=== PATIENT | female | born 1930 | race Caucasian/White ===

== ENCOUNTER 2017-04-17 11:29 | Inpatient (IN) | payer MEDICARE, OTHER ==
--- NOTE | 2017-04-17 12:24 | CT ---
CT HEAD WITHOUT CONTRAST: Date: 04/17/17 Multiple tomograms obtained through head without IV enhancement. HISTORY: Mental status change. Seizure at detention. COMPARISON: Head CT of 09/14/14. FINDINGS: Moderate cortical volume loss. Mild to moderate chronic ischemic white matter change. No evidence of acute mass, hemorrhage, or infarct. Sinuses and mastoids are well aerated. IMPRESSION: There are chronic changes which appear stable from the prior CT. No evidence of acute process. POS: [facility]
--- NOTE | 2017-04-17 12:28 | RAD ---
PORTABLE CHEST: Date: 04/17/17 HISTORY: Mental status change. COMPARISON: 11/16/13. FINDINGS: Cardiomegaly. Mild vascular and interstitial engorgement suggesting mild congestion and edema. [place] ralph right hemidiaphragm. Relatively poor inspiration. Severe degenerative changes at both shoulders. IMPRESSION: Cardiomegaly with evidence of mild congestion. POS: [facility]
[2017-04-17 12:53] LABS: #Basophils 0.1 thou/uL (0.0-0.2); #Eosinphils 0.1 thou/uL (0.0-0.7); #Lymphocytes 1.1 thou/uL (1.20-3.40); #Monocytes 0.5 thou/uL (0.11-0.59); #Neutrophils 14.2 thou/uL (1.40-6.50); %Basophils 0.3 % (0.0-1.0); %Eosinophils 0.5 % (0.0-10.0); %Monocytes 3.2 % (0.0-10.0); Hematocrit 32.4 % (36.0-47.0); Mean Platelet Volume 8.8 fL (7.4-10.4); Red Blood Cell (RBC) Count 3.16 mill/uL (4.20-5.40)
[2017-04-17 12:58] LABS: Bilirubin Negative (Negative); Blood, Urine Negative (Negative); Glucose, Urine (Dipstick) Negative (Negative); Ketone, Urine Negative (Negative); Nitrite Negative (Negative); Protein, Urine (Dipstick) 100 mg/dL (Neg-Trace); Urobilinogen 0.2 mg/dL (0.2-1.0)
[2017-04-17 13:00] LABS: Bacteria/HPF None Seen HPF (None Seen); Hyaline Casts/LPF 0-3 HYALINE CAST LPF (0-3 Hyaline); RBC/HPF 0-3 HPF (0-3); Squamous Epithelial 0-3 HPF (0-3); WBC/HPF 0-3 HPF (0-3)
[2017-04-17 13:10] LABS: Lactic Acid - Sepsis 1.6 mmol/L (0.5-2.2)
[2017-04-17 13:13] LABS: ALT (SGPT) 14 U/L (8-55); AST (SGOT) 28 U/L (5-34); Alkaline Phosphatase 107 U/L (40-150); Anion Gap 17 mmol/L (10-20); BUN (Urea Nitrogen) 38 mg/dL (9.8-20.1); Bilirubin, Total 0.4 mg/dL (0.2-1.2); Calc. Creatinine Clearance 0 mL/min (70-130); Calcium 8.8 mg/dL (7.8-10.44); Carbon Dioxide 19 mmol/L (23-31); Chloride 107 mmol/L (98-107); Estimated GFR-MDRD 30; Globulin 2.8 g/dL (2.4-3.5); Protein, Total 6.7 g/dL (6.0-8.3)
--- NOTE | 2017-04-17 14:31 | HP ---
PRIMARY CARE PHYSICIAN: Leandra Bella M.D. REASON FOR ADMISSION: Acute encephalopathy. HISTORY OF PRESENT ILLNESS: An 86-year-old female who has multiple medical problems who lives at [facility]. The patient was suddenly became altered. As per report, the patient was having seizure-like activity at the jail and the patient became nonverbal and the patie nt was in postictal phase. A 911 was called and paramedics brought her to the emergency room. As p er jail report, the patient is normally talkative and coherent, but today after seizure-like activity, the patient became nonverbal. The patient does have history of chronic pain disorder and she has pain pump in her right lower quad rant, but family member reports that they never refilled pain pump lately. The patient also had rec ently surgery at [facility] on the right upper extremity by Dr. Meza. There was no report of fever, chills at the jail. She did not have any UTI symptoms. The patient is completely altered and nonverbal and we are not able to get any history from her as w sd, history only limited from information which was given from jail. The patient's son who is a surgeon is also present at bedside. He also does not have any more clue because he was not pr esent when this happened. He was notified from jail and after that he came from [place]. When she presented to emergency room, she was hypertensive. She was completely disoriented and ence phalopathic. In the emergency room, CT brain was done which did not show any acute intracranial pro cess, but there were chronic ischemic white matter changes. This patient never had any seizure befo re. There was no history of trauma. The patient's son reports that she had one time admission in [facility] in 2014. At that time, the patient was given TPA for stroke-like symptoms. REVIEW OF SYSTEMS: All review of systems tried to review with the patient, but unable to review at this point because the patient is completely altered. Please see my HPI for pertinent positive and negative. All other review of systems negative. PAST MEDICAL HISTORY: Gastroesophageal reflux disease, rheumatoid arthritis, peripheral vascular di sease, history of deep vein thrombosis, dyslipidemia, hypertension, osteoarthritis, chronic kidney d isease stage 3, anemia of renal disease, history of MRSA infection in the right knee, Charcot foot o n the right side, idiopathic progressive polyneuropathy, chronic pain disorder, and history of left below-knee amputation. PAST SURGICAL HISTORY: Surgery for right knee for infection, pain pump in the right lower quadrant, left below-knee amputation, left knee surgery and spinal fusion, cholecystectomy, hysterectomy, jignesh ateral shoulder surgery, right and left ankle surgery, multiple hand surgery, IVC filter placement f or DVT, bilateral cataract surgery. PSYCHIATRIC HISTORY: Anxiety and depression. ALLERGIES: TEGRETOL and DETROL. FAMILY HISTORY: Diabetes, hypertension runs among several family members. SOCIAL HISTORY: The patient lives at [facility]. No history of tobacco, alcohol or illicit drug abuse. CURRENT HOME MEDICATIONS: Amlodipine 5 mg p.o. daily, Lipitor 10 mg p.o. at bedtime, aspirin 81 mg p.o. daily, probiotics 1 capsule twice daily, Dulcolax 5 mg Wednesday, Wednesday, Wednesday and at bedtime , Cymbalta 60 mg p.o. daily, vitamin D3 2000 units p.o. daily, gabapentin 100 mg twice daily, MiraLa x 17 grams p.o. daily, Plaquenil 200 mg p.o. daily, prednisone 5 mg p.o. daily, Protonix 20 mg p.o. daily., sulfasalazine 1500 mg twice daily, multivitamin 1 tablet p.o. daily. EMERGENCY ROOM COURSE: The patient has received Keppra 500 mg and IV fluid. PHYSICAL EXAMINATION: VITAL SIGNS: On arrival, blood pressure was 205/81, pulse 74, respiratory rate 14, temperature 97.6 , saturation 93% on 2 liter oxygen, weight 51 kilograms. GENERAL: The patient is completely disoriented. HEENT: Head: Normocephalic and atraumatic. Eyes: Pupils small and reactive to light. Extraocula r muscle are intact. ENT: Moist mucous membranes. No oral lesions. No pharyngeal erythema, no ex udate. NECK: Supple, no JVD, no thyromegaly, no carotid bruit. LUNGS: Clear to auscultation without any rhonchi or rales. CARDIAC: S1, S2 regular. No murmur elicited, no gallop, no rub. ABDOMEN: Soft. The pain pump is present in the right lower quadrant. No peritoneal signs. No dis tention. Bowel sounds present. No organomegaly, no mass. GENITOURINARY: Unremarkable. LOWER EXTREMITIES: Left BKA, right lower extremity unremarkable. Right foot, Charcot foot. Upper extremity, passive movements of all joints are normal. NEUROLOGIC: Unable to assess at this point because the patient is completely disoriented, though th e patient is moving all four limbs. PSYCHIATRIC: Unable to assess at this point. SIGNIFICANT LABS: Chest x-ray based on my review, cardiomegaly, mild pulmonary vascular congestion. CT brain, chronic ischemic white matter changes, no acute process. boat buffer plastic showing sinu s rhythm with occasional PVCs. CBC: WBC 16.0, hemoglobin 9.9, MCV 102.0, and platelet 269. BMP: Sodium 139, potassium 3.6, chloride 107, carbon dioxide 19, BUN 38, creatinine 1.63, glucose 95, mateo cium 8.8, lactic acid 1.6. LFT: AST 28, ALT 14, alkaline phosphatase 107, albumin 3.9. CK-MB 7.0, troponin I 0.030. Urinalysis unremarkable. ASSESSMENT AND PLAN: 1. Acute encephalopathy, etiology uncertain at this point, we will check urine drug screen. We kanchan l send blood culture and urine culture. CT brain is negative for any acute intracranial process, chicas spected for seizure based on description from jail. We will consult Neurology for their opi nion. We will check B12, folate, ammonia level as a part of encephalopathy workup. We will continu e with IV fluid and start empiric antibiotic therapy with Rocephin. We will also check total CK pro lactin level. 2. Macrocytic anemia. We will check B12, folate and start folic acid, vitamin B12 therapy while in hospital. 3. Leukocytosis, likely related with acute stress response, but underlying infection needs to be ex cluded. We will send blood culture and urine culture. We are empirically starting Rocephin therapy . 4. Acute on chronic kidney failure. The patient has baseline chronic kidney disease stage 3, curre ntly creatinine is elevated. The patient will be given IV fluid at 70 mL per hour and we will repea t BMP tomorrow. 5. Gastroesophageal reflux disease. We will continue Protonix 40 mg p.o. daily. 6. Hypertension. We will continue amlodipine 5 mg p.o. daily and we will use parenteral hydralazin e and labetalol p.r.n. basis if the patient is not able to take p.o. medication. 7. Dyslipidemia. We will check lipid profile tomorrow and continue Lipitor 10 mg p.o. at bedtime. 8. Anxiety and depression. We will continue Cymbalta 60 mg p.o. daily. 9. Rheumatoid arthritis. We will continue Plaquenil 200 mg p.o. daily, prednisone 5 mg p.o. daily and sulfasalazine 1500 mg twice daily. 10. Chronic pain disorder and we will continue pain medication as tolerated. 11. Chronic peripheral neuropathy. Continue gabapentin 100 mg 3 times daily. 12. Deep venous thrombosis prophylaxis. Lovenox 30 mg subcutaneously daily. 13. Gastrointestinal prophylaxis, Pepcid 20 mg p.o. b.i.d. CODE STATUS: The patient is DNR. The patient's son is Dr. Blankenship who is surgeon in [place], present at bedside in the emergency room. He is a legal medical power of disability attorney and confirmed with him. Disposition plan based on clinical course. At this point, we are suspecting patient's stay in [facility] more than 2 midnights. Plan of care discussed with the patient's son at bedside in the emergenc y room.
[2017-04-17] MEDS ORDERED: hydrALAZINE 20 MG/ML VIAL ONE (14:47)
[2017-04-17] MEDS ORDERED: Lorazepam 2 MG/ML VIAL SLOW IVP PRN (15:47)
[2017-04-17] MEDS ORDERED: Ondansetron ODT 4 MG TAB PO PRN (15:47)
[2017-04-17] MEDS ORDERED: Artificial Tear Sol 15 ML BOT EA EYE PRN (15:47)
[2017-04-17] MEDS ORDERED: Eucerin (Mineral Oil/Petrolatum,White) 30 gm Jar TOP PRN (15:47)
[2017-04-17] MEDS ORDERED: Sodium Chloride 0.65% Nasal 44 ML BOT EA NARE PRN (15:47)
[2017-04-17] MEDS ORDERED: Labetalol HCl 100 MG/20 ML VIAL SLOW IVP PRN (15:47)
[2017-04-17] MEDS ORDERED: Diabetic Tussin 200 MG/10 ML UDCUP PO PRN (15:47)
[2017-04-17] MEDS ORDERED: hydrALAZINE 20 MG/ML VIAL SLOW IVP PRN (15:47)
[2017-04-17] MEDS ORDERED: Mag-Al 1200 mg/1200 mg/30 ML UDCUP PO PRN (15:47)
[2017-04-17] MEDS ORDERED: Senokot 8.6 MG TAB PO PRN (15:47)
[2017-04-17] MEDS ORDERED: Acetaminophen 325 MG TAB PO PRN (15:47)
[2017-04-17] MEDS ORDERED: Polyethylene Glycol 3350 17 GM Packet PO PRN (15:47)
[2017-04-17] MEDS ORDERED: Loperamide HCl 2 MG CAP PO PRN (15:47)
[2017-04-17] MEDS ORDERED: Milk Of Magnesia 30 ML UDCUP PO PRN (15:47)
[2017-04-17] MEDS ORDERED: Ondansetron HCl/PF 4 MG/2 ML Vial IVP PRN (15:47)
[2017-04-17] MEDS ORDERED: Bisacodyl 10 MG SUPP PR PRN (15:47)
[2017-04-17] MEDS ORDERED: Loratadine 10 MG TAB PO PRN (15:47)
[2017-04-17] MEDS ORDERED: Gabapentin 100 MG CAP PO SCH (16:15)
[2017-04-17] MEDS: sulfaSALAzine 500 MG TAB PO SCH ×2 (16:45→21:43)
[2017-04-17] MEDS: cefTRIAXone\\ROCEPHIN 1 GM, Admixture Fee 1 EACH in Sodium Chloride 0.9% 100 ML IVPB SCH (16:57)
[2017-04-17] MEDS: Sodium Chloride 0.9% 1,000 ML IV SCH (16:57)
--- NOTE | 2017-04-17 20:53 | CON ---
DATE OF CONSULTATION: 04/17/2017 REFERRING PHYSICIAN: Jennifer Hyde M.D. REASON FOR CONSULTATION: Confusion, questionable seizure. HISTORY OF PRESENT ILLNESS: Ms. Blankenship is a pleasant 86-year-old female who has been consulted for evaluation of confusion and possible seizure-like activity. History is very limited as the patient is unable to provide. There are no family member present at bedside. For this reason, most of the history is obtained from the patient's dictated H\T\P note. Apparently, the patient lives in a long-term and has multiple medical problems. She was seen by long-term staff to have changes in mentation and there was a questionable seizure-like activity noted. For this reason, paramedics were called in and she was brought to the [place] [facility]. The patient on my evaluation today is able to state her name and age. She is able to follow commands. She is somewhat groggy, but reports that she just feels tired and has pain in her leg. She denies headaches, chest pain, palpitation, nausea or vomiting. PAST MEDICAL HISTORY: Significant for hypertension, dyslipidemia, history of DVT, GERD, rheumatoid arthritis, and peripheral vascular disease, chronic kidney disease stage 3, anemia of chronic disease, history of MRSA in right knee , idiopathic progressive polyneuropathy, chronic pain disorder, and history of a left below-knee amputation. PAST SURGICAL HISTORY: Significant for left below-knee amputation, surgery for right knee infection, pain pump, spinal fusion, cholecystectomy, hysterectomy, bilateral shoulder surgery, right and left ankle surgery, multiple hand surgery , IVC filter placement for DVT and bilateral cataract surgery. SOCIAL HISTORY: She currently lives at [facility]. She does not smoke cigarettes, drink alcohol or use illicit drugs. FAMILY HISTORY: Noncontributory. CURRENT MEDICATIONS: Please review MAR. ALLERGIES: Include TEGRETOL and DETROL. REVIEW OF SYSTEMS: As mentioned above in HPI, otherwise negative. PHYSICAL EXAMINATION: VITAL SIGNS: Blood pressure of 143/66, pulse of 75, temperature of 97.6, respirations of 18, and O2 sats of 96% on 2 liters nasal cannula. GENERAL: Well-developed and well-nourished female in no apparent distress. RESPIRATORY: Clear to auscultation bilaterally. CARDIOVASCULAR: Regular rate and rhythm. NEUROLOGIC: Mental status: The patient is awake, alert, and oriented to person only. She is able to follow some simple commands. Speech and language appears fluent. Cranial nerves: Pupils are 3 mm and reactive. Visual sierra are full to threat. Extraocular muscles are intact. Face appears symmetric. Tongue and uvula are midline. Motor exam showed normal tone and bulk with 5/5 strength in both upper extremities and right lower extremities. She has a left BKA. Sensory appears intact in both upper and lower extremities. Gait and Romberg coordination could not be tested. LABORATORY DATA: Reviewed, which included CBC, CMP, troponin, CK-MB, TSH, B12, folate, which is significant for WBC of 16.0, hemoglobin 9.9, hematocrit of 32.4 , CK-MB of 7.0, BUN of 38, creatinine of 1.63, magnesium of 3.0, ammonia of 15. TSH of 45.6541. Urinalysis was negative, otherwise unremarkable. IMAGING STUDIES: CT head without contrast was reviewed which showed no acute intracranial abnormality. IMPRESSION: 1. Altered mental status, likely toxic metabolic encephalopathy. 2. Hypothyroidism. 3. Hypertension. ASSESSMENT AND PLAN: Ms. Blankenship is a pleasant 86-year-old female who presented with the changes in mentation. There was a questionable seizure-like activity, although the full description is not available. In my opinion, this is likely toxic metabolic encephalopathy. Given that she has no prior history of seizure disorder, I would not recommend starting on any antiepileptic medication at this time. I may obtain EEG for further evaluation. Unfortunately , we cannot obtain MRI brain due to the fact that she has a pain pump placed. I will await the results of the EEG. I would recommend addressing her elevated TSH level. Thank you for consultation. LORI
[2017-04-17] MEDS: Atorvastatin Calcium 10 MG TAB PO SCH (21:43)
[2017-04-17] MEDS: Famotidine 20 MG TAB PO SCH (21:43)
[2017-04-17] MEDS: Gabapentin 100 MG CAP PO SCH (21:43)
[2017-04-18 04:45] LABS: #Basophils 0.1 thou/uL (0.0-0.2); #Eosinphils 0.2 thou/uL (0.0-0.7); #Lymphocytes 2.2 thou/uL (1.20-3.40); #Monocytes 1.3 thou/uL (0.11-0.59); #Neutrophils 11.8 thou/uL (1.40-6.50); %Basophils 0.7 % (0.0-1.0); %Eosinophils 1.1 % (0.0-10.0); %Lymphocytes 14.3 % (21.0-51.0); %Monocytes 8.5 % (0.0-10.0); Hematocrit 31.6 % (36.0-47.0); Mean Platelet Volume 8.7 fL (7.4-10.4); Red Blood Cell (RBC) Count 3.06 mill/uL (4.20-5.40); White Blood Cell (WBC) Count 15.6 thou/uL (4.8-10.8)
[2017-04-18 04:58] LABS: ALT (SGPT) 12 U/L (8-55); AST (SGOT) 21 U/L (5-34); Alkaline Phosphatase 86 U/L (40-150); Anion Gap 15 mmol/L (10-20); BUN (Urea Nitrogen) 31 mg/dL (9.8-20.1); Bilirubin, Total 0.4 mg/dL (0.2-1.2); Calc. Creatinine Clearance 19 mL/min (70-130); Calcium 8.4 mg/dL (7.8-10.44); Carbon Dioxide 17 mmol/L (23-31); Chloride 113 mmol/L (98-107); Estimated GFR-MDRD 35; Globulin 2.4 g/dL (2.4-3.5); Protein, Total 5.7 g/dL (6.0-8.3)
--- NOTE | 2017-04-18 08:03 | CT ---
PRELIMINARY REPORT/[facility]/EMERGENCY AFTER HOURS PROCEDURE: EXAM: CT Head Without Intravenous Contrast CLINICAL HISTORY: 86 years old, female; Signs and symptoms; Altered mental status/memory loss; Confusion or disorienta tion; Patient HX: AMS TECHNIQUE: Axial computed tomography images of the head/brain without intravenous contrast. COMPARISON: No relevant prior studies available. FINDINGS: Brain: Mild volume loss No hemorrhage. Mild white matter disease. No edema. Ventricles: Unremarkable. No ventriculomegaly. Bones/joints: Degenerative changes at the temporomandibular joints No acute fracture. Soft tissues: Unremarkable. Sinuses: Unremarkable as visualized. No acute sinusitis. Mastoid air cells: Unremarkable as visualized. No mastoid effusion. IMPRESSION: No intracranial hemorrhage.Please see discussion above. Thank you for allowing us to participate in the care of your patient. Dictated and Authenticated by: Nish Douglas MD 04/18/2017 1:24 AM Central Time ([place] \T\ [place]) FINAL REPORT NONCONTRAST HEAD CT: Date: 04/18/17 COMPARISON: 04/17/17. HISTORY: Acute mental status change. TECHNIQUE: Noncontrast head CT is performed from skull baes to skull vertex. FINDINGS: This report is in agreement with the preliminary report by Rajiv. No acute intracranial process. No s ignificant interval change. POS: [facility]
[2017-04-18] MEDS: Enoxaparin Sodium 30 MG/0.3 ML SYRINGE SC SCH (09:29)
[2017-04-18] MEDS: Famotidine 20 MG TAB PO SCH ×3 (09:30→22:34)
[2017-04-18] MEDS: Gabapentin 100 MG CAP PO SCH ×3 (09:30→22:35)
[2017-04-18] MEDS: Amlodipine 5 MG TAB PO SCH ×2 (09:33→14:07)
[2017-04-18] MEDS: predniSONE 5 MG TAB PO SCH (09:34)
[2017-04-18] MEDS: Cyanocobalamin (Vitamin B-12) 1,000 MCG TAB PO SCH (09:34)
[2017-04-18] MEDS: DULoxetine 60 MG CAP PO SCH (09:35)
[2017-04-18] MEDS: Multivitamin W/ Minerals 1 TAB PO SCH (09:35)
[2017-04-18] MEDS: Folic Acid 1 MG TAB PO SCH (09:35)
[2017-04-18] MEDS: Hydroxychloroquine Sulfate 200 MG TAB PO SCH (09:35)
[2017-04-18] MEDS: sulfaSALAzine 500 MG TAB PO SCH ×4 (09:35→22:35)
--- NOTE | 2017-04-18 11:40 | PDOC.PN ---
- Subjective Encounter Start Date: 04/18/17 Encounter Start Time: 10:45 -: old records requested/rev Patient seen and examined. No new complaints. No overnight events, no seizure - Objective Resuscitation Status: Resuscitation Status DNR:Do Not Resuscitate MAR Reviewed: Yes Vital Signs & Weight: Vital Signs (12 hours) Temp Pulse Resp BP Pulse Ox 04/18/17 11:02 97.8 F 77 18 98 04/18/17 09:33 78 04/18/17 08:00 98.3 F 78 16 92 L 04/18/17 07:25 98.3 F 78 16 152/70 H 92 L 04/18/17 04:00 97.9 F 83 20 149/69 H 97 04/18/17 01:31 128/60 04/18/17 00:30 128/56 L 04/18/17 00:15 136/62 04/17/17 23:53 78 04/17/17 23:50 200/86 H 04/17/17 23:41 98.5 F 78 18 191/81 H 96 Weight Weight 96 lb 4.8 oz I&O: 04/17/17 04/18/17 04/19/17 06:59 06:59 06:59 Intake Total 614 Balance 614 Result Diagrams: 04/18/17 04:33 04/18/17 04:33 Additional Labs: Accuchecks 04/18/17 00:48 POC Glucose 93 Radiology Reviewed by me: Yes (CT brain noted) EKG Reviewed by me: Yes Phys Exam - Physical Examination Constitutional: NAD HEENT: PERRLA, moist MMs, sclera anicteric Neck: no JVD, supple Respiratory: no wheezing, no rales, no rhonchi Cardiovascular: RRR, no significant murmur, no rub Gastrointestinal: soft, non-tender, no distention, positive bowel sounds left BKA, upper extrimity with dressing Lymphatic: no nodes Psychiatric: normal affect Skin: no rash, normal turgor Dx/Plan (1) Acute metabolic encephalopathy Code(s): G93.41 - METABOLIC ENCEPHALOPATHY Status: Acute (2) Hypothyroidism Code(s): E03.9 - HYPOTHYROIDISM, UNSPECIFIED Status: Acute (3) Leucocytosis Code(s): D72.829 - ELEVATED WHITE BLOOD CELL COUNT, UNSPECIFIED Status: Acute (4) UTI (urinary tract infection) Status: Acute (5) Anxiety and depression Code(s): F41.8 - OTHER SPECIFIED ANXIETY DISORDERS Status: Chronic (6) CKD (chronic kidney disease), stage III Code(s): N18.3 - CHRONIC KIDNEY DISEASE, STAGE 3 (MODERATE) Status: Chronic (7) Dyslipidemia Code(s): E78.5 - HYPERLIPIDEMIA, UNSPECIFIED Status: Chronic (8) History of left below knee amputation Code(s): Z89.512 - ACQUIRED ABSENCE OF LEFT LEG BELOW KNEE Status: Chronic (9) Hypertension Code(s): I10 - ESSENTIAL (PRIMARY) HYPERTENSION Status: Chronic (10) Macrocytic anemia Code(s): D53.9 - NUTRITIONAL ANEMIA, UNSPECIFIED Status: Chronic (11) Protein-calorie malnutrition, moderate Code(s): E44.0 - MODERATE PROTEIN-CALORIE MALNUTRITION Status: Chronic (12) Rheumatoid arthritis Code(s): M06.9 - RHEUMATOID ARTHRITIS, UNSPECIFIED Status: Chronic (13) Seizure Code(s): R56.9 - UNSPECIFIED CONVULSIONS Status: Suspected - Plan cont current plan of care, continue antibiotics * continue rocephin * follow up on urine culture * no further seizure * today more alert * neurology recommendation noted * medication reviewed as below * symptomatic treatment. Review of Systems - Review of Systems Other: unable to review due to dementia and pt is confused - Medications/Allergies Allergies/Adverse Reactions: Allergies Allergy/AdvReac Type Severity Reaction Status Date / Time carbamazepine [From Tegretol] Allergy Rash Verified 11/16/13 14:53 tolterodine tartrate Allergy Verified 11/16/13 14:53 [From Detrol] Medications: Current Medications Acetaminophen (Tylenol) 650 mg PO Q4H PRN PRN Reason: Headache/Fever or Pain Al Hydroxide/Mg Hydroxide (Maalox) 30 ml PO Q6H PRN PRN Reason: Heartburn or Indigestion Amlodipine Besylate (Norvasc) 5 mg PO DAILY [facility] Last Admin: 04/18/17 09:33 Dose: 5 mg Artificial Tears (Tears Renewed 15ml Bottle) 0 drop EA EYE PRN PRN PRN Reason: Dry Eyes Aspirin (Aspirin Chewable) 81 mg PO DAILY [facility] Last Admin: 04/18/17 09:30 Dose: 81 mg Atorvastatin Calcium (Lipitor) 10 mg PO HS [facility] Last Admin: 04/17/17 21:43 Dose: Not Given Bisacodyl (Dulcolax) 10 mg GA Q24H PRN PRN Reason: Constipation Cholecalciferol (Vitamin D3) 2,000 units PO DAILY [facility] Last Admin: 04/18/17 09:34 Dose: Not Given Cyanocobalamin (Vitamin B-12) 1,000 mcg PO DAILY [facility] Last Admin: 04/18/17 09:34 Dose: Not Given Duloxetine HCl (Cymbalta) 60 mg PO DAILY [facility] Last Admin: 04/18/17 09:35 Dose: Not Given Enoxaparin Sodium (Lovenox) 30 mg SC 0900 [facility] Last Admin: 04/18/17 09:29 Dose: 30 mg Famotidine (Pepcid) 20 mg PO BID [facility] Last Admin: 04/18/17 09:30 Dose: 20 mg Folic Acid (Folvite) 1 mg PO DAILY [facility] Last Admin: 04/18/17 09:35 Dose: Not Given Gabapentin (Neurontin) 100 mg PO TID [facility] Last Admin: 04/18/17 09:30 Dose: 100 mg Guaifenesin (Robitussin Sf) 200 mg PO Q4H PRN PRN Reason: Cough Hydralazine HCl (Apresoline) 10 mg SLOW IVP Q4H PRN PRN Reason: Systolic BP > 180 Last Admin: 04/17/17 23:53 Dose: 10 mg Hydroxychloroquine Sulfate (Plaquenil) 200 mg PO DAILY [facility] Last Admin: 04/18/17 09:35 Dose: Not Given Sodium Chloride (Normal Saline 0.9%) 1,000 mls @ 70 mls/hr IV .[id number] [facility] Last Admin: 04/17/17 16:57 Dose: 1,000 mls Levetiracetam 500 mg/ Device 100 mls @ 200 mls/hr IVPB BID [facility] Last Admin: 04/18/17 09:27 Dose: 100 mls Ceftriaxone Sodium 1 gm/Miscellaneous Medication 1 each/ Sodium Chloride 100 mls @ 200 mls/hr IVPB Q24HR@1700 [facility] Last Admin: 04/17/17 16:57 Dose: 100 mls Iron/Minerals/Multivitamins (Theragran M) 1 tab PO DAILY [facility] Last Admin: 04/18/17 09:35 Dose: Not Given Labetalol HCl (Normodyne) 20 mg SLOW IVP Q4H PRN PRN Reason: Systolic BP > 180 Levothyroxine Sodium (Synthroid) 75 mcg PO 0600 YANELY Loperamide HCl (Imodium) 2 mg PO PRN PRN PRN Reason: Diarrhea/Loose Stools Loratadine (Claritin) 10 mg PO DAILYPRN PRN PRN Reason: Sinus Symptoms Lorazepam (Ativan) 1 mg SLOW IVP Q4H PRN PRN Reason: Anxiety/Agitation Magnesium Hydroxide (Milk Of Magnesium) 30 ml PO DAILYPRN PRN PRN Reason: Constipation Mineral Oil/White Petrolatum (Eucerin Cream) 0 gm TOP BIDPRN PRN PRN Reason: Dry Skin Ondansetron HCl (Zofran Odt) 4 mg PO Q6H PRN PRN Reason: Nausea/Vomiting Ondansetron HCl (Zofran) 4 mg IVP Q6H PRN PRN Reason: Nausea/Vomiting Pantoprazole Sodium (Protonix) 40 mg PO DAILY [facility] Last Admin: 04/18/17 09:35 Dose: Not Given Polyethylene Glycol (Miralax) 17 gm PO DAILYPRN PRN PRN Reason: Constipation Prednisone (Prednisone) 5 mg PO QAM-[facility] Last Admin: 04/18/17 09:34 Dose: Not Given Senna (Senokot) 2 tab PO HSPRN PRN PRN Reason: Constipation Sodium Chloride ([place] Nasal [place] 0.65%) 0 ml EA NARE QIDPRN PRN PRN Reason: Nasal Congestion Sulfasalazine (Azulfidine) 1,500 mg PO QID [facility] Last Admin: 04/18/17 09:35 Dose: Not Given
[2017-04-18] MEDS ORDERED: hydrOXYzine 10 MG TAB PO PRN (13:25)
[2017-04-18] MEDS ORDERED: niCARdipine 40MG In NaCl 40 MG/200 ML BAG IVPB SCH (14:00)
[2017-04-18] MEDS ORDERED: niCARdipine HCl 50 MG in Sodium Chloride 0.9% 250 ML 230 ML IVPB SCH (14:00)
[2017-04-18 14:04] LABS: #Basophils 0.1 thou/uL (0.0-0.2); #Eosinphils 0.2 thou/uL (0.0-0.7); #Lymphocytes 2.1 thou/uL (1.20-3.40); #Monocytes 1.2 thou/uL (0.11-0.59); #Neutrophils 10.2 thou/uL (1.40-6.50); %Basophils 0.9 % (0.0-1.0); %Eosinophils 1.5 % (0.0-10.0); %Lymphocytes 15.3 % (21.0-51.0); Hematocrit 30.4 % (36.0-47.0); Mean Platelet Volume 8.9 fL (7.4-10.4); Red Blood Cell (RBC) Count 2.91 mill/uL (4.20-5.40); White Blood Cell (WBC) Count 13.9 thou/uL (4.8-10.8)
--- NOTE | 2017-04-18 14:07 | PRG ---
DATE OF SERVICE: 04/18/2017 SUBJECTIVE: This patient was seen earlier this morning. Pramod Lloyd was called and the patient was seen again bedside. As per nursing, the patient was earlier alert, arousable and responsive, but Tyra Ascencio was called because suddenly the patient became unresponsive. The patient was seen and exam ined at bedside. Plan of care discussed with the patient's family member and the patient's son is p resent at bedside. Her blood pressure is 227/123. I am suspecting the patient has hypertensive enc ephalopathy. Her pupil is small, but reactive. The patient is not following any commands. I am or dering a routine blood test as well as CT brain again without contrast to rule out any hypertensive bleed. The patient's son is concerned about and that is why we decided to transfer to CCU for close monitoring. We will start a Cardene drip. I spoke with the Speech Therapy and they cleared here f or pureed type of diet. We will discontinue IV fluid and we will closely monitor tonight in CCU.
[2017-04-18 14:29] LABS: Anion Gap 17 mmol/L (10-20); BUN (Urea Nitrogen) 29 mg/dL (9.8-20.1); Calc. Creatinine Clearance 21 mL/min (70-130); Calcium 8.5 mg/dL (7.8-10.44); Carbon Dioxide 18 mmol/L (23-31); Chloride 114 mmol/L (98-107); Estimated GFR-MDRD 39
[2017-04-18 14:35] LABS: Troponin I 0.043 ng/mL (< 0.028)
[2017-04-18] MEDS: cefTRIAXone\\ROCEPHIN 1 GM, Admixture Fee 1 EACH in Sodium Chloride 0.9% 100 ML IVPB SCH (19:54)
[2017-04-18] MEDS: Sodium Chloride 0.9% 1,000 ML IV SCH (19:54)
[2017-04-18] MEDS ORDERED: cefTRIAXone\\ROCEPHIN 1 GM, Admixture Fee 1 EACH in Sodium Chloride 0.9% 100 ML IVPB SCH (21:00)
[2017-04-18] MEDS: Atorvastatin Calcium 10 MG TAB PO SCH (22:35)
[2017-04-18] MEDS: cloNIDine 0.1 MG TAB PO PRN (23:29)
[2017-04-19] MEDS: cloNIDine 0.1 MG TAB PO PRN ×2 (05:06→10:32)
[2017-04-19] MEDS: Levothyroxine Sodium 75 MCG TAB PO SCH (05:06)
[2017-04-19] MEDS: Folic Acid 1 MG TAB PO SCH (10:21)
[2017-04-19] MEDS: sulfaSALAzine 500 MG TAB PO SCH ×4 (10:22→20:43)
[2017-04-19] MEDS: Amlodipine 5 MG TAB PO SCH (10:22)
[2017-04-19] MEDS: Cyanocobalamin (Vitamin B-12) 1,000 MCG TAB PO SCH (10:22)
[2017-04-19] MEDS: Gabapentin 100 MG CAP PO SCH ×3 (10:22→20:43)
[2017-04-19] MEDS: Hydroxychloroquine Sulfate 200 MG TAB PO SCH (10:22)
[2017-04-19] MEDS: DULoxetine 60 MG CAP PO SCH (10:23)
[2017-04-19] MEDS: Multivitamin W/ Minerals 1 TAB PO SCH (10:23)
[2017-04-19] MEDS: Enoxaparin Sodium 30 MG/0.3 ML SYRINGE SC SCH (10:23)
[2017-04-19] MEDS: predniSONE 5 MG TAB PO SCH (10:23)
[2017-04-19] MEDS: Famotidine 20 MG TAB PO SCH ×2 (10:23→20:42)
[2017-04-19 13:24] LABS: Free T3 Less than 1.00 pg/mL (1.71-3.71)
--- NOTE | 2017-04-19 13:30 | PDOC.PN ---
- Subjective Encounter Start Date: 04/19/17 Encounter Start Time: 09:00 Subjective: Patient more oriented today. No complaints. Doesn't remember coming in -: though does remember that people thought she might have had a -: seizure. - Objective Resuscitation Status: Resuscitation Status DNR:Do Not Resuscitate MAR Reviewed: Yes Vital Signs & Weight: Vital Signs (12 hours) Temp Pulse Resp BP BP Pulse Ox 04/19/17 12:00 97.7 F 76 20 150/67 H 94 L 04/19/17 10:32 188/83 H 04/19/17 10:22 72 04/19/17 07:46 98.4 F 72 20 188/83 H 96 04/19/17 04:22 98 F 79 16 182/101 H 92 L Weight Weight 96 lb 4.8 oz Most Recent Monitor Data Heart Rate from ECG 67 NIBP 155/59 NIBP BP-Mean 90 Respiration from ECG 11 SpO2 99 I&O: 04/18/17 04/19/17 04/20/17 06:59 06:59 06:59 Intake Total 614 245 200 Output Total 1 Balance 614 244 200 Result Diagrams: 04/18/17 13:55 04/18/17 13:55 Additional Labs: Accuchecks 04/18/17 13:38 POC Glucose 76 Phys Exam - Physical Examination Constitutional: NAD HEENT: moist MMs Respiratory: no wheezing, no rales, no rhonchi Cardiovascular: RRR, no significant murmur Gastrointestinal: soft, positive bowel sounds Neurological: moves all 4 limbs Psychiatric: normal affect, A&O x 3 Dx/Plan (1) Acute metabolic encephalopathy Code(s): G93.41 - METABOLIC ENCEPHALOPATHY Status: Acute Plan: Improving, possibly related to uncontrolled blood pressure. EEG pending. (2) Hypothyroidism Code(s): E03.9 - HYPOTHYROIDISM, UNSPECIFIED Status: Acute Plan: check fT3 and T4 (3) UTI (urinary tract infection) Status: Acute Plan: Multi drug resistant E.coli, less than 25,000 CFU and normal appearing UA in this hospital so suspicious for colonization only, not infection. Will d/c antibiotics for now. Consult ID. (4) CKD (chronic kidney disease), stage III Code(s): N18.3 - CHRONIC KIDNEY DISEASE, STAGE 3 (MODERATE) Status: Chronic (5) Dyslipidemia Code(s): E78.5 - HYPERLIPIDEMIA, UNSPECIFIED Status: Chronic (6) History of left below knee amputation Code(s): Z89.512 - ACQUIRED ABSENCE OF LEFT LEG BELOW KNEE Status: Chronic (7) Hypertension Code(s): I10 - ESSENTIAL (PRIMARY) HYPERTENSION Status: Chronic Plan: Improved control. Now out of ICU. - Plan cont current plan of care, PT/OT, speech therapy Appreciate neurology input. * . - Discharge Day Encounter end time: 10:00
[2017-04-19] MEDS: Atorvastatin Calcium 10 MG TAB PO SCH (20:43)
[2017-04-20] MEDS: cloNIDine 0.1 MG TAB PO PRN ×2 (00:05→23:53)
[2017-04-20 05:00] LABS: #Basophils 0.1 thou/uL (0.0-0.2); #Eosinphils 0.3 thou/uL (0.0-0.7); #Lymphocytes 2.2 thou/uL (1.20-3.40); #Monocytes 0.8 thou/uL (0.11-0.59); #Neutrophils 5.6 thou/uL (1.40-6.50); %Basophils 1.2 % (0.0-1.0); %Eosinophils 3.2 % (0.0-10.0); %Lymphocytes 24.6 % (21.0-51.0); %Monocytes 8.9 % (0.0-10.0); Hematocrit 28.2 % (36.0-47.0); Mean Platelet Volume 8.7 fL (7.4-10.4); Red Blood Cell (RBC) Count 2.69 mill/uL (4.20-5.40)
[2017-04-20] MEDS: Levothyroxine Sodium 75 MCG TAB PO SCH (05:10)
[2017-04-20 05:17] LABS: Anion Gap 9 mmol/L (10-20); BUN (Urea Nitrogen) 21 mg/dL (9.8-20.1); Calc. Creatinine Clearance 24 mL/min (70-130); Calcium 8.4 mg/dL (7.8-10.44); Carbon Dioxide 23 mmol/L (23-31); Chloride 113 mmol/L (98-107); Estimated GFR-MDRD 43
[2017-04-20] MEDS: sulfaSALAzine 500 MG TAB PO SCH ×4 (08:51→20:01)
[2017-04-20] MEDS: predniSONE 5 MG TAB PO SCH (08:54)
[2017-04-20] MEDS: Multivitamin W/ Minerals 1 TAB PO SCH (08:54)
[2017-04-20] MEDS: Cyanocobalamin (Vitamin B-12) 1,000 MCG TAB PO SCH (08:54)
[2017-04-20] MEDS: Hydroxychloroquine Sulfate 200 MG TAB PO SCH (08:54)
[2017-04-20] MEDS: Amlodipine 5 MG TAB PO SCH (08:55)
[2017-04-20] MEDS: Folic Acid 1 MG TAB PO SCH (08:55)
[2017-04-20] MEDS: Famotidine 20 MG TAB PO SCH ×2 (08:55→20:01)
[2017-04-20] MEDS: Gabapentin 100 MG CAP PO SCH ×3 (08:55→20:02)
[2017-04-20] MEDS: Enoxaparin Sodium 30 MG/0.3 ML SYRINGE SC SCH (08:55)
[2017-04-20] MEDS: DULoxetine 60 MG CAP PO SCH (08:55)
[2017-04-20] MEDS ORDERED: levETIRAcetam 500 MG TAB PO SCH (12:30)
--- NOTE | 2017-04-20 14:13 | CON ---
DATE OF CONSULTATION: 04/20/2017 REASON FOR CONSULTATION: Change in mental status. HISTORY OF PRESENT ILLNESS: An 86-year-old who has a history of rheumatoid arthritis, previously on Remicade and bilateral TKRs, as well as a left below knee amputation whom I had seen in 2012 because of change in mental status with aspiration. She had negative blood cultures at that time. Previously, she had sustained an infection of the right TKR. She had completed treatment with IV antimicrobial therapy for methicillin resistant Staphylococcal infection and had revision without any complications and [facility]. In 07/2013, she had an admission with altered mental status due to narcotics. CT of brain then showed no abnormalities. Chest x-ray was normal. She had a fentanyl pump which was being monitored by pain specialist and no changes in medications have been implemented. In 10/2013 she was admitted with altered mental status with unintentional narcotic overdose. She was discharged on her medications including nortriptyline, Marlex, Lyrica, clonidine, she had an implantable pain pump which had a basal rate decreased from 1.5 mg per day to 1.3 mg per day performed by [employer] liaison. In 08/2014 she came in with partial vision loss of unclear etiology, possibly CVA and this time she was admitted with altered mental status with seizure-like activity. Neurology consultation was obtained and the impression was altered mental status, likely metabolic encephalopathy with questionable seizure-like activity. As part of workup, the patient had various labs, she did have white cell count elevation to 16,000 with platelets 269, now down to 9000. Creatinine was up to 1.29 and now is 1.19. Sodium was normal. Urinalysis was essentially normal. Microbiology with E. coli which was quite resistant to various antimicrobials. The patient had been given her medications that had been prescribed in the [facility] and currently she has recovered from her abnormal mental status. She has a little bit of difficulty with orientation. She knew she was in [place]. She did not remember the name of the place that she came from. She had some difficulty with recollection regarding various issues related to her current medical situation, did not remember the episode that led to admission to this hospital at this time. She denies any headaches, no visual symptoms, sore throat, odynophagia or dysphagia. She has some mild pain in the right hand at the site of recent surgery. No dyspnea or chest pain, no abdominal pain or diarrhea. No genitourinary symptoms. No other joint symptoms except for chronic joint issues related to her RA. PAST MEDICAL HISTORY: Longstanding rheumatoid arthritis, previously on Remicade , but not currently. History of recurrent episodes of delirium, possibly medication induced. Prior multiple surgeries for joint deformities and to improve the function including bilateral TKRs, left BKA, spinal fusion, cholecystectomy, hysterectomy episode of aspiration pneumonia, IVC filter placement, cataract surgery. ALLERGIES: TEGRETOL, DETROL. FAMILY HISTORY: Diabetes and hypertension. SOCIAL HISTORY: Lives in [facility], never a smoker. 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 MEDICATIONS: Norvasc, Lipitor, aspirin, probiotics, Dulcolax, Cymbalta, gabapentin, Marlex, Plaquenil, prednisone, Protonix, sulfasalazine. PHYSICAL EXAMINATION: VITAL SIGNS: Normal temperature throughout the hospital stay. Blood pressure 160/70, pulse 77, respirations 16, O2 sat 94-97%. GENERAL: Appears in no distress. SKIN: With a dry surgical site right hand dorsal aspect right across the metacarpophalangeal joints. She has an area of abrasion of the left forearm with some bruising probably from the fall. At the distal aspect this is an element of superficial skin necrosis. The entire lesion measures approximately 6-7 cm x 2 cm in width. No lymphadenopathy. HEENT: Ocular movements are conjugate. Sclerae white. Pupils are equal. Oral cavity with edentulous state. NECK: Supple, no jugular venous distention. LUNGS: With symmetric clear breath sounds. HEART: S1, S2, regular rate. No S3, S4, no murmurs. ABDOMEN: Soft. Not distended. No ascites. No bladder distention. EXTREMITIES: Some multiple joint deformities secondary to rheumatoid arthritis , particularly in the hands. She has the left BKA site which is intact. No evidence of knee inflammatory process. Pulses are diminished in dorsalis pedis. I could not get any plantar responses on the right side. No clonus. She is able to move extremities with a little limitation except for the subluxation of joints and a splint in the right hand. NEURO: She knows her name, recognizes the place, could not tell me the date, though. LABORATORY: Most recent labs with a white cell count 9.0, hemoglobin 8.8, MCV 105, platelets 222. Sodium 141, creatinine 1.19. Microbiology with what we discussed above. Chest x-ray with no evidence of infiltrate. Brain CT with no acute findings. ASSESSMENT: 1. Longstanding rheumatoid arthritis, previously on Remicade. 2. Recurrent episodes of altered mental status which led to prior admissions, previously ascribed to drug-induced delirium. Discussion: Recurrence of delirium, possibly drug-induced particularly opioid induced delirium is a consideration. According to the patient her pump is not functional anymore, but up until 2014 this was not the case. This may need to be revisited to determine if the pump has been recharged or not. She does take a number of other medications which can be associated with delirium. 4. The findings in urinary tract are most likely reflective of asymptomatic bacteriuria and I would not encourage treatment of this finding. Verify that there is proper post-void residual prior to discharge planning. 5. She has a laceration in the left forearm which appears to require only wound care without antimicrobial therapy. [facility]
--- NOTE | 2017-04-20 15:22 | PDOC.PN ---
- Subjective Encounter Start Date: 04/20/17 Encounter Start Time: 08:20 Pt seen for followup re: encephalopathy. Denies chest pain, shortness of breath , fevers or chills. No nausea or vomiting. - Objective Resuscitation Status: Resuscitation Status DNR:Do Not Resuscitate MAR Reviewed: Yes Vital Signs & Weight: Vital Signs (12 hours) Temp Pulse Pulse Pulse Resp BP Pulse Ox 04/20/17 11:35 98.4 F 77 16 169/71 H 94 L 04/20/17 08:55 66 04/20/17 08:50 97.8 F 66 16 97 04/20/17 08:27 72 74 04/20/17 03:32 97.8 F 66 16 132/70 97 Weight Admit Weight 104 lb Weight 99 lb 1.6 oz Most Recent Monitor Data Heart Rate from ECG 67 NIBP 155/59 NIBP BP-Mean 90 Respiration from ECG 11 SpO2 99 I&O: 04/19/17 04/20/17 04/21/17 06:59 06:59 06:59 Intake Total 245 720 Output Total 1 Balance 244 720 Result Diagrams: 04/20/17 04:32 04/20/17 04:32 EKG Reviewed by me: Yes (Tele: NSR) Phys Exam - Physical Examination Constitutional: NAD HEENT: moist MMs, sclera anicteric Neck: supple Respiratory: clear to auscultation bilateral Cardiovascular: RRR Gastrointestinal: soft RLQ pain pump s/p L BKA; R hand splint Neurological: moves all 4 limbs Psychiatric: normal affect, A&O x 3 Skin: no rash, cap refill <2 seconds Deviation from normal: laceration L forearm Dx/Plan (1) Acute metabolic encephalopathy Code(s): G93.41 - METABOLIC ENCEPHALOPATHY Status: Resolved (2) Hypothyroidism Code(s): E03.9 - HYPOTHYROIDISM, UNSPECIFIED Status: Chronic (3) CKD (chronic kidney disease), stage III Code(s): N18.3 - CHRONIC KIDNEY DISEASE, STAGE 3 (MODERATE) Status: Chronic (4) Dyslipidemia Code(s): E78.5 - HYPERLIPIDEMIA, UNSPECIFIED Status: Chronic (5) Hypertension Code(s): I10 - ESSENTIAL (PRIMARY) HYPERTENSION Status: Chronic (6) Macrocytic anemia Code(s): D53.9 - NUTRITIONAL ANEMIA, UNSPECIFIED Status: Chronic (7) Protein-calorie malnutrition, moderate Code(s): E44.0 - MODERATE PROTEIN-CALORIE MALNUTRITION Status: Chronic (8) Rheumatoid arthritis Code(s): M06.9 - RHEUMATOID ARTHRITIS, UNSPECIFIED Status: Chronic - Plan * . Pt is off of antibiotics for UTI (? colinization). Oriented x 3 today, but also appears to have episodes of confusion. Has home health at assisted living. Will order checking of [employer] pain pump. Review of Systems - Review of Systems Constitutional: negative: Fever, Chills, Sweats, Weakness, Malaise Respiratory: negative: Cough, Dry, Shortness of Breath, Hemoptysis, SOB with Excertion, Pleuritic Pain, Sputum, Wheezing Cardiovascular: negative: Chest Pain, Palpitations, Orthopnea, Paroxysmal Noc. Dyspnea, Edema, Light Headedness - Medications/Allergies Allergies/Adverse Reactions: Allergies Allergy/AdvReac Type Severity Reaction Status Date / Time carbamazepine [From Tegretol] Allergy Rash Verified 11/16/13 14:53 tolterodine tartrate Allergy Verified 11/16/13 14:53 [From Detrol] Medications: Current Medications Acetaminophen (Tylenol) 650 mg PO Q4H PRN PRN Reason: Headache/Fever or Pain Last Admin: 04/18/17 22:35 Dose: 650 mg Al Hydroxide/Mg Hydroxide (Maalox) 30 ml PO Q6H PRN PRN Reason: Heartburn or Indigestion Amlodipine Besylate (Norvasc) 5 mg PO DAILY [facility] Last Admin: 04/20/17 08:55 Dose: 5 mg Artificial Tears (Tears Renewed 15ml Bottle) 0 drop EA EYE PRN PRN PRN Reason: Dry Eyes Aspirin (Aspirin Chewable) 81 mg PO DAILY [facility] Last Admin: 04/20/17 08:54 Dose: 81 mg Atorvastatin Calcium (Lipitor) 10 mg PO HS [facility] Last Admin: 04/19/17 20:43 Dose: 10 mg Bisacodyl (Dulcolax) 10 mg NE Q24H PRN PRN Reason: Constipation Cholecalciferol (Vitamin D3) 2,000 units PO DAILY [facility] Last Admin: 04/20/17 08:51 Dose: 2,000 units Clonidine (Catapres) 0.1 mg PO Q4H PRN PRN Reason: SBP Greater Than 170 Last Admin: 04/20/17 00:05 Dose: 0.1 mg Cyanocobalamin (Vitamin B-12) 1,000 mcg PO DAILY [facility] Last Admin: 04/20/17 08:54 Dose: 1,000 mcg Duloxetine HCl (Cymbalta) 60 mg PO DAILY [facility] Last Admin: 04/20/17 08:55 Dose: 60 mg Enoxaparin Sodium (Lovenox) 30 mg SC 0900 [facility] Last Admin: 04/20/17 08:55 Dose: 30 mg Famotidine (Pepcid) 20 mg PO BID [facility] Last Admin: 04/20/17 08:55 Dose: 20 mg Folic Acid (Folvite) 1 mg PO DAILY [facility] Last Admin: 04/20/17 08:55 Dose: 1 mg Gabapentin (Neurontin) 100 mg PO TID [facility] Last Admin: 04/20/17 08:55 Dose: 100 mg Guaifenesin (Robitussin Sf) 200 mg PO Q4H PRN PRN Reason: Cough Hydroxychloroquine Sulfate (Plaquenil) 200 mg PO DAILY [facility] Last Admin: 04/20/17 08:54 Dose: 200 mg Hydroxyzine HCl (Atarax) 10 mg PO Q6H PRN PRN Reason: Itching Nicardipine HCl 50 mg/ Sodium (Chloride) 250 mls @ 0 mls/hr IVPB INF [facility]; Titrate PRN Reason: Protocol Iron/Minerals/Multivitamins (Theragran M) 1 tab PO DAILY [facility] Last Admin: 04/20/17 08:54 Dose: 1 tab Labetalol HCl (Normodyne) 20 mg SLOW IVP Q4H PRN PRN Reason: Systolic BP > 180 Last Admin: 04/18/17 13:47 Dose: 20 mg Levetiracetam (Keppra) 500 mg PO BID [facility] Levothyroxine Sodium (Synthroid) 75 mcg PO 0600 [facility] Last Admin: 04/20/17 05:10 Dose: 75 mcg Loperamide HCl (Imodium) 2 mg PO PRN PRN PRN Reason: Diarrhea/Loose Stools Loratadine (Claritin) 10 mg PO DAILYPRN PRN PRN Reason: Sinus Symptoms Lorazepam (Ativan) 1 mg SLOW IVP Q4H PRN PRN Reason: Anxiety/Agitation Magnesium Hydroxide (Milk Of Magnesium) 30 ml PO DAILYPRN PRN PRN Reason: Constipation Mineral Oil/White Petrolatum (Eucerin Cream) 0 gm TOP BIDPRN PRN PRN Reason: Dry Skin Ondansetron HCl (Zofran Odt) 4 mg PO Q6H PRN PRN Reason: Nausea/Vomiting Ondansetron HCl (Zofran) 4 mg IVP Q6H PRN PRN Reason: Nausea/Vomiting Pantoprazole Sodium (Protonix) 40 mg PO DAILY [facility] Last Admin: 04/20/17 08:55 Dose: 40 mg Polyethylene Glycol (Miralax) 17 gm PO DAILYPRN PRN PRN Reason: Constipation Prednisone (Prednisone) 5 mg PO QAM[facility] Last Admin: 04/20/17 08:54 Dose: 5 mg Senna (Senokot) 2 tab PO HSPRN PRN PRN Reason: Constipation Sodium Chloride ([place] Nasal [place] 0.65%) 0 ml EA NARE QIDPRN PRN PRN Reason: Nasal Congestion Sulfasalazine (Azulfidine) 1,500 mg PO QID [facility] Last Admin: 04/20/17 12:51 Dose: 1,500 mg
[2017-04-20] MEDS: Atorvastatin Calcium 10 MG TAB PO SCH (20:01)
[2017-04-20] MEDS: levETIRAcetam 500 MG TAB PO SCH (20:02)
[2017-04-21] MEDS: Levothyroxine Sodium 75 MCG TAB PO SCH (05:44)
[2017-04-21] MEDS: Enoxaparin Sodium 30 MG/0.3 ML SYRINGE SC SCH (10:52)
[2017-04-21] MEDS: sulfaSALAzine 500 MG TAB PO SCH ×4 (10:52→21:12)
[2017-04-21] MEDS: DULoxetine 60 MG CAP PO SCH (10:53)
[2017-04-21] MEDS: Folic Acid 1 MG TAB PO SCH (10:54)
[2017-04-21] MEDS: levETIRAcetam 500 MG TAB PO SCH ×2 (10:54→21:12)
[2017-04-21] MEDS: Amlodipine 5 MG TAB PO SCH (10:55)
[2017-04-21] MEDS: Hydroxychloroquine Sulfate 200 MG TAB PO SCH (10:55)
[2017-04-21] MEDS: predniSONE 5 MG TAB PO SCH (10:55)
[2017-04-21] MEDS: Famotidine 20 MG TAB PO SCH ×2 (10:55→21:12)
[2017-04-21] MEDS: Cyanocobalamin (Vitamin B-12) 1,000 MCG TAB PO SCH (10:56)
[2017-04-21] MEDS: Gabapentin 100 MG CAP PO SCH ×3 (10:56→21:12)
[2017-04-21] MEDS: Multivitamin W/ Minerals 1 TAB PO SCH (10:56)
--- NOTE | 2017-04-21 11:49 | PQF ---
CLINICAL DOCUMENTATION IMPROVEMENT CLARIFICATION FORM: ICD-10 Updated PLEASE DO AN ADDENDUM TO THE PROGRESS NOTE WITH ANY DOCUMENTATION UPDATES OR ADDITIONS AND CARRY THROUGH TO DC SUMMARY. THANK YOU. DATE: 04/21/17 ATTN: Dr. Tristan Madrigal Please exercise your independent, professional judgment in responding to the clarification form. Clinical indicators are provided on the bottom of this form for your review Please check appropriate box(s): [ ] Encephalopathy: Etiology: [ ] Hypertensive [ ] Metabolic [ ] Toxic [ ] Unspecified [ ] Other (please specify) [ ] Other diagnosis [ ] Unable to determine For continuity of documentation, please document condition throughout progress notes and discharge summary. Thank You. CLINICAL INDICATORS - SIGNS / SYMPTOMS / LABS NEUROLOGY CONSULT 04/17: AMS, LIKELY TOXIC METABOLIC ENCEPHALOPATHY PN 04/18: CODE GREEN WAS CALLED BP 227/123. I AM SUSPECTING THE PT HAS HYPERTENSIVE ENCEPHALOPATHY. START CARDENE DRIP. PN 04/19 : ACUTE METABOLIC ENCEPHALOPATHY. IMPROVING, POSSIBLY RELATED TO UNCONTROLLED BLOOD PRESSURE. RISKS: H&P: HX OF CHRONIC PAIN DISORDER AND HAS PAIN PUMP IN HER RLQ. WHEN SHE PRESENTED TO ER, SHE WAS HYPERTENSIVE. COMPLETELY DISORIENTED & ENCEPHALOPATHIC. HX OF RHEUMATOID ARTHRITIS, PVD, HYPERTENSION, CKD 3. TREATMENTS: CPOE 04/17: EEG CPOE 04/17: LABETALOL HCL 20 MG SLOW IVP Q4 HR PRN PN 04/20: WILL ORDER CHECKING OF [employer] PAIN PUMP Thank you, Freda (This form is maintained as a part of the permanent medical record) 2015 [employer] All Rights Reserved Freda Mcpherson RN, BSN [email or web address] Office: [phone] [facility]
[2017-04-21 12:45] VITALS: BMI 19.4
--- NOTE | 2017-04-21 14:01 | PDOC.PN ---
- Subjective Encounter Start Date: 04/21/17 Encounter Start Time: 13:56 Patient seen at bedside. No overnight events, no new complaints. No seizures reported. - Objective Resuscitation Status: Resuscitation Status DNR:Do Not Resuscitate Vital Signs & Weight: Vital Signs (12 hours) Temp Pulse Pulse Pulse Resp BP BP 04/21/17 11:06 97.7 F 73 16 04/21/17 10:55 68 162/78 H 04/21/17 09:43 81 72 131/60 04/21/17 08:00 97.7 F 73 16 04/21/17 07:25 97.4 F L 68 14 04/21/17 04:05 98.1 F 72 16 BP BP Pulse Ox 04/21/17 11:06 149/67 H 92 L 04/21/17 10:55 04/21/17 09:43 127/62 04/21/17 08:00 92 L 04/21/17 07:25 162/78 H 95 04/21/17 04:05 152/80 H 94 L Weight Admit Weight 104 lb Weight 99 lb 6.4 oz Most Recent Monitor Data Heart Rate from ECG 67 NIBP 155/59 NIBP BP-Mean 90 Respiration from ECG 11 SpO2 99 I&O: 04/20/17 04/21/17 04/22/17 06:59 06:59 06:59 Intake Total 720 1270 Balance 720 1270 Result Diagrams: 04/20/17 04:32 04/20/17 04:32 Phys Exam - Physical Examination Constitutional: NAD HEENT: moist MMs Neck: no JVD Respiratory: no rales Cardiovascular: RRR Gastrointestinal: soft Musculoskeletal: pulses present L BKA, R Hand in cast Psychiatric: A&O x 3 Dx/Plan (1) Acute metabolic encephalopathy Code(s): G93.41 - METABOLIC ENCEPHALOPATHY Status: Suspected (2) Anxiety and depression Code(s): F41.8 - OTHER SPECIFIED ANXIETY DISORDERS Status: Chronic (3) Dyslipidemia Code(s): E78.5 - HYPERLIPIDEMIA, UNSPECIFIED Status: Chronic (4) History of left below knee amputation Code(s): Z89.512 - ACQUIRED ABSENCE OF LEFT LEG BELOW KNEE Status: Chronic (5) Hypertension Code(s): I10 - ESSENTIAL (PRIMARY) HYPERTENSION Status: Chronic (6) Seizure Code(s): R56.9 - UNSPECIFIED CONVULSIONS Status: Suspected - Plan cont current plan of care, PT/OT, outreach and education social worker, out of bed/ambulate * Continue with current management. * On Keppra. Await official EEG results * Levothyroxine * Unclear etiology to AMS, which is resolved. Unable to get MRI due to pain pump ( no medication in pump as per treasury representative) * Awaiting Hand sx evaluation for sx recently performed * D/C in AM most likely
[2017-04-21] MEDS: Atorvastatin Calcium 10 MG TAB PO SCH (21:12)
[2017-04-22] MEDS: cloNIDine 0.1 MG TAB PO PRN (04:30)
[2017-04-22] MEDS: Levothyroxine Sodium 75 MCG TAB PO SCH (04:30)
[2017-04-22] MEDS: predniSONE 5 MG TAB PO SCH (08:49)
[2017-04-22] MEDS: Amlodipine 5 MG TAB PO SCH (08:49)
[2017-04-22] MEDS: Cyanocobalamin (Vitamin B-12) 1,000 MCG TAB PO SCH (08:50)
[2017-04-22] MEDS: DULoxetine 60 MG CAP PO SCH (08:50)
[2017-04-22] MEDS: Enoxaparin Sodium 30 MG/0.3 ML SYRINGE SC SCH (08:51)
[2017-04-22] MEDS: Gabapentin 100 MG CAP PO SCH ×2 (08:51→14:01)
[2017-04-22] MEDS: Hydroxychloroquine Sulfate 200 MG TAB PO SCH (08:51)
[2017-04-22] MEDS: Folic Acid 1 MG TAB PO SCH (08:51)
[2017-04-22] MEDS: Famotidine 20 MG TAB PO SCH (08:51)
[2017-04-22] MEDS: levETIRAcetam 500 MG TAB PO SCH (08:52)
[2017-04-22] MEDS: sulfaSALAzine 500 MG TAB PO SCH ×2 (08:52→14:01)
[2017-04-22] MEDS: Multivitamin W/ Minerals 1 TAB PO SCH (08:52)
[2017-04-22 11:01] VITALS: TEMP 97.4
[2017-04-22 11:40] VITALS: BP 121/60
--- NOTE | 2017-04-22 12:25 | PDOC.PN ---
- Subjective Encounter Start Date: 04/22/17 Encounter Start Time: 12:23 Patient seen at bedside. No overnight events, no new complaints, wants to go home. - Objective Resuscitation Status: Resuscitation Status DNR:Do Not Resuscitate MAR Reviewed: Yes Vital Signs & Weight: Vital Signs (12 hours) Temp Pulse Pulse Pulse Resp BP BP 04/22/17 11:00 97.4 F L 77 20 04/22/17 08:49 75 04/22/17 08:15 84 79 121/60 120/56 L 04/22/17 07:46 98.3 F 75 16 04/22/17 07:25 97.5 F L 70 12 04/22/17 05:05 04/22/17 03:56 98.3 F 75 16 BP Pulse Ox 04/22/17 11:00 136/62 97 04/22/17 08:49 04/22/17 08:15 04/22/17 07:46 04/22/17 07:25 184/76 H 91 L 04/22/17 05:05 141/79 H 04/22/17 03:56 176/78 H 97 Weight Admit Weight 104 lb Weight 93 lb 12.8 oz Most Recent Monitor Data Heart Rate from ECG 67 NIBP 155/59 NIBP BP-Mean 90 Respiration from ECG 11 SpO2 99 I&O: 04/21/17 04/22/17 04/23/17 06:59 06:59 06:59 Intake Total 1270 800 480 Balance 1270 800 480 Result Diagrams: 04/20/17 04:32 04/20/17 04:32 Phys Exam - Physical Examination Constitutional: NAD HEENT: moist MMs Neck: no JVD Respiratory: no rales Cardiovascular: RRR Gastrointestinal: non-tender Musculoskeletal: no edema BKA Neurological: non-focal Psychiatric: A&O x 3 Dx/Plan (1) Acute metabolic encephalopathy Code(s): G93.41 - METABOLIC ENCEPHALOPATHY Status: Resolved (2) Anxiety and depression Code(s): F41.8 - OTHER SPECIFIED ANXIETY DISORDERS Status: Chronic (3) Dyslipidemia Code(s): E78.5 - HYPERLIPIDEMIA, UNSPECIFIED Status: Chronic (4) History of left below knee amputation Code(s): Z89.512 - ACQUIRED ABSENCE OF LEFT LEG BELOW KNEE Status: Chronic (5) Hypertension Code(s): I10 - ESSENTIAL (PRIMARY) HYPERTENSION Status: Chronic (6) Seizure Code(s): R56.9 - UNSPECIFIED CONVULSIONS Status: Suspected - Plan cont current plan of care, PT/OT, manager social * Will D/W Neurology about EEG results and if Keppra is needed. * Appreciate plastics assistance- cast rewrapped. F/U in one week * D/C back to assisted living.
--- NOTE | 2017-04-22 15:42 | DIS ---
DATE OF ADMISSION: 04/17/2017 DATE OF DISCHARGE: 04/22/2017 DISCHARGE DISPOSITION: Assisted living with home health. DISCHARGE DIAGNOSES: 1. Altered mental status, etiology unclear; however, suspected toxic metabolic encephalopathy. 2. Hypothyroidism, started on levothyroxine therapy. 3. Gastroesophageal reflux disease. 4. Rheumatoid arthritis. 5. Hypertension. 6. History of left [id number] amputation. DISCHARGE MEDICATIONS: 1. Norvasc 5 mg p.o. daily. 2. Aspirin 81 mg p.o. daily. 3. Lipitor 10 mg p.o. at bedtime. 4. Dulcolax p.r.n. 5. Gabapentin 100 mg p.o. t.i.d. 6. Cinebar p.r.n. 7. Cymbalta 60 mg p.o. daily. 8. Synthroid 75 mcg p.o. daily, this is new. 9. Prednisone 5 mg p.o. daily. 10. Sulfasalazine 1500 mg p.o. b.i.d. 11. Mucinex p.r.n. INPATIENT CONSULTATIONS: 1. Dr. Cerrato, Neurology. 2. Dr. Yoder, Infectious Disease. INPATIENT PROCEDURES: None. INPATIENT RADIOGRAPHIC EXAMINATIONS: 1. CT of the brain which revealed no acute processes. 2. Chest x-ray which revealed cardiomegaly with evidence of mild congestion. 3. Repeat CT of the brain which revealed no acute intracranial hemorrhage. BRIEF HOSPITAL COURSE: Smita Blankenship is an 86-year-old female with multiple medical problems who presen ts to the Emergency Room after reportedly having altered mental status. As per the report, the angela ent was having seizure-like activity and subsequently brought to the emergency room. She was then s ubsequently admitted to the stroke floor for further evaluation. Initial imaging was negative. Due to the fact that it was initially thought she may have had a seizure, started on Keppra. EEG was p erformed with the assistance of Neurology who stated that the EEG was essentially negative on admiss ion and required being on Keppra. It was thought that her altered mental status may be secondary to metabolic encephalopathy. She did have a TSH which was 45. Subsequently, she was started on p.o. levothyroxine, has tolerated this well. On 04/18/2017, the patient had a Code Green due to increase d lethargy and unresponsiveness. She was transferred to the Critical Care Unit for a Cardene drip a s her systolic pressures over 220. She was transitioned off the Cardene drip and her blood pressure was improved. She was then subsequently transferred back to the stroke floor. Her mentation gradu ally did improve. Of note, the patient had a recent surgery with Dr. Meaz in her right hand. S he came by, rewrapped the cast and stated that she needs to follow up in 1 week. The patient's ment ation improved. It was suspected that it is most likely either a hypertensive encephalopathy versus a metabolic encephalopathy which may have caused altered mental status. There is no indication of a seizure and hence her antiepileptic medication was discontinued. She will return back to assisted living with home health with group home, physical therapy, occupational therapy, and wound car e. She is clinically appropriate for discharge home and we will discharge home later today in stabl e condition. DISCHARGE DIET: Heart healthy. ACTIVITY: As tolerated. RESTRICTIONS: None. CODE STATUS: DNR. ALLERGIES: CARBAMAZEPINE and TOLTERODINE. DISCHARGE PLAN: 1. Follow up with her PCP as an outpatient. 2. Dr. Meza in 1 week. 3. I have explained all this to the patient at bedside. She is agreeable to the plan of discharge. All questions have been answered. Total discharge time 34 minutes.
--- NOTE | 2017-04-24 15:17 | EKG ---
Test Reason : Blood Pressure : / mmHG Vent. Rate : 070 BPM Atrial Rate : 070 BPM P-R Int : 158 ms QRS Dur : 138 ms QT Int : 490 ms P-R-T Axes : 015 -54 184 degrees QTc Int : 529 ms Normal sinus rhythm Right bundle branch block Left anterior fascicular block Bifascicular block Septal infarct , age undetermined T wave abnormality, consider inferolateral ischemia No STEMI Abnormal ECG No changes since 2012 Confirmed by KRYSTAL YUAN M.D. ([id number]), electrical discharge machine operator LEXII KIMBROUGH ([id number]) on 04/24/2017 3:17:02 PM Referred By: Confirmed By:KRYSTAL YUAN M.D.
== END 2017-04-22 14:21 | disposition home health service (06) | DRG 77 ==
LOC: ERS 11:29 → 2SE 15:14 → CCU 04-18 14:34 → 2SE 04-18 19:12
PROVIDERS: ADMIT Internal Medicine; ATTEND Internal Medicine
DX: I67.4 Hypertensive encephalopathy (principal); G92 Toxic encephalopathy; N17.9 Acute kidney failure, unspecified; A52.16 Charcot's arthropathy (tabetic); E44.0 Moderate protein-calorie malnutrition; G62.9 Polyneuropathy, unspecified; N18.3 Chronic kidney disease, stage 3 (moderate); Z68.1 Body mass index [BMI] 19.9 or less, adult; M06.9 Rheumatoid arthritis, unspecified; E03.9 Hypothyroidism, unspecified; K21.9 Gastro-esophageal reflux disease without esophagitis; I12.9 Hypertensive chronic kidney disease with stage 1 through stage 4 chronic kidney disease, or unspecified chronic kidney disease; E78.5 Hyperlipidemia, unspecified; G89.29 Other chronic pain; F41.9 Anxiety disorder, unspecified; F32.9 Major depressive disorder, single episode, unspecified; D53.9 Nutritional anemia, unspecified; I73.9 Peripheral vascular disease, unspecified; M19.90 Unspecified osteoarthritis, unspecified site; Z89.512 Acquired absence of left leg below knee; Z86.718 Personal history of other venous thrombosis and embolism; Z86.14 Personal history of Methicillin resistant Staphylococcus aureus infection; Z98.890 Other specified postprocedural states; Z66 Do not resuscitate; Z88.8 Allergy status to other drugs, medicaments and biological substances
CPT/HCPCS: 36415; 36416; 51701; 70450; 71010; 80048; 80053; 81003; 81015; 82140; 82553; 82607; 82746; 83605; 83735; 83880; 84146; 84439; 84443; 84481; 84484; 85025; 87040; 87077; 87086; 87186; 93005; 94760; 95816; 95819; 96365; 96375; A4353; G8981-GP-CK; G8982-GP-CJ; G8987-GO-CK; G8988-GO-CJ; G8996-GN-CI; G8996-GN-CK; G8997-GN-CI; G8997-GN-CJ; J0360; J0696; J1650; J1953; J7050

== ENCOUNTER 2018-04-17 17:11 | Inpatient (IN) | payer MEDICARE ==
[2018-04-17 17:40] LABS: Hemoglobin 9.3 g/dL (12.0-16.0); Mean Corpuscular HGB CONC 30.1 g/dL (32.0-36.0); Mean Corpuscular Hemoglobin 31.5 pg (27.0-31.0); Mean Platelet Volume 9.8 fL (7.4-10.4); Platelet Count 169 thou/uL (130-400); RBC Distribution Width 14.2 % (11.5-14.5); Red Blood Cell (RBC) Count 2.96 mill/uL (4.20-5.40); White Blood Cell (WBC) Count 8.1 thou/uL (4.8-10.8)
[2018-04-17 17:50] LABS: ALT (SGPT) 13 U/L (8-55); AST (SGOT) 19 U/L (5-34); Albumin 4.7 g/dL (3.4-4.8); Alkaline Phosphatase 113 U/L (40-150); Anion Gap 17 mmol/L (10-20); BUN (Urea Nitrogen) 47 mg/dL (9.8-20.1); Bilirubin, Total 0.3 mg/dL (0.2-1.2); Calc. Creatinine Clearance 0 mL/min (70-130); Carbon Dioxide 14 mmol/L (23-31); Chloride 114 mmol/L (98-107); Estimated GFR-MDRD 29; Globulin 2.2 g/dL (2.4-3.5); Glucose 107 mg/dL (83-110); Potassium 6.4 mmol/L (3.5-5.1); Protein, Total 6.9 g/dL (6.0-8.3); Sodium 139 mmol/L (136-145)
[2018-04-17 17:57] LABS: Actual Bicarbonate (HCO3a) 15.8 mEq/L (22-28); Analyzer IN Cardio ER; Base Excess (BEa) -10.7 mEq/L (-2.0 to +3.0); CO2 Tension 37.5 mmHg (35.0-45.0); Carboxyhemoglobin (COHb) 1.4 gm% (0.0-3.0); Hemoglobin (Hb) 9.2 g/dL (12.0-16.0); O2 Tension (PaO2) 79.3 mmHg (> 60.0); Potassium - ABG Lab 6.12 mmol/L (3.70-5.30)
[2018-04-17 17:59] LABS: ALV-art Gradient 23.555 (0-20); Puncture Site RRA; pH, Arterial 7.24 (7.35-7.45)
[2018-04-17 18:02] LABS: #Basophils 0.1 thou/uL (0.0-0.2); #Eosinphils 0.4 thou/uL (0.0-0.7); #Lymphocytes 2.9 thou/uL (1.20-3.40); #Monocytes 1.1 thou/uL (0.11-0.59); #Neutrophils 3.6 thou/uL (1.40-6.50); %Basophils 1.8 % (0.0-1.0); %Eosinophils 4.9 % (0.0-10.0); %Lymphocytes 35.5 % (21.0-51.0); %Monocytes 13.3 % (0.0-10.0); %Neutrophils 44.6 % (42.0-75.0); MDiff Complete? YES; Macrocytosis SLIGHT = 6-15 cells (100X) (0-5/hpf); PLT Morphology Comment Appears Adequate; Poikilocytosis SLIGHT = 6-15 cells (100X) (0-5/hpf)
[2018-04-17 18:14] LABS: Bilirubin Negative (Negative); Blood, Urine Negative (Negative); Clarity CLEAR (Clear); Glucose, Urine (Dipstick) Negative (Negative); Leukocyte Trace (Negative); Nitrite Negative (Negative); Protein, Urine (Dipstick) 30 mg/dL (Neg-Trace); Specific Gravity, Urine 1.017 (1.002-1.036); Urobilinogen 0.2 mg/dL (0.2-1.0)
[2018-04-17 18:17] LABS: Bacteria/HPF None Seen HPF (None Seen); Hyaline Casts/LPF 0-3 HYALINE CAST LPF (0-3 Hyaline); Pathc Cast-AUWi Flag 0.14 (0-2.49); RBC/HPF None Seen HPF (0-3); Squamous Epithelial None Seen HPF (0-3); WBC/HPF None Seen HPF (0-3)
--- NOTE | 2018-04-17 18:32 | RAD ---
CHEST ONE VIEW: History: Dyspnea. Comparison: 04-17-17 FINDINGS: Cardiac silhouette is magnified and enlarged. Pulmonary vasculature unremarkable. Mediastinum is midl ine. Elevation of the right hemidiaphragm is stable. No lobar consolidation or evidence of pneumothor ax. Chronic deformities of each shoulder are stable. Metallic filter overlies the inferior vena cava. IMPRESSION: Cardiomegaly. Chronic type findings are stable. POS: CHARLES
[2018-04-17 19:28] LABS: Troponin I Less than 0.010 ng/mL (< 0.028)
--- NOTE | 2018-04-17 20:46 | CT ---
CT HEAD NONCONTRAST: History: Altered mental status. Comparison: 04-18-17 FINDINGS: There is no evidence of acute intracranial hemorrhage or infarct. Diffuse cortical atrophy and chroni c ischemic small vessel disease are again demonstrated. There is no mass effect or shift of midline s tructures. Calcification in the arteries at the brain base. Partial opacification of the left maxilla ry sinus and mastoid air cells. IMPRESSION: 1. No acute intracranial abnormalities are demonstrated. 2. Atherosclerosis. 3. Partial opacification of the left mastoid air cells and maxillary sinus. POS: CHARLES
[2018-04-17] MEDS ORDERED: Polyethylene Glycol 3350 17 GM Packet PO PRN (23:57)
[2018-04-17] MEDS ORDERED: Acetaminophen 500 MG TAB PO PRN (23:57)
[2018-04-18 00:18] LABS: Anion Gap 11 mmol/L (10-20); BUN (Urea Nitrogen) 40 mg/dL (9.8-20.1); Calc. Creatinine Clearance 19 mL/min (70-130); Calcium 8.5 mg/dL (7.8-10.44); Carbon Dioxide 17 mmol/L (23-31); Chloride 116 mmol/L (98-107); Estimated GFR-MDRD 37; Glucose 92 mg/dL (83-110); Potassium 5.5 mmol/L (3.5-5.1); Sodium 138 mmol/L (136-145)
[2018-04-18 00:48] LABS: Troponin I 0.013 ng/mL (< 0.028)
[2018-04-18] MEDS: hydrALAZINE 20 MG/ML VIAL SLOW IVP PRN (01:27)
[2018-04-18] MEDS: HYDROcodone/Acetaminophen 5/325 mg Tablet PO PRN ×3 (02:31→15:42)
[2018-04-18] MEDS: Levothyroxine Sodium 100 MCG TAB PO SCH (05:29)
[2018-04-18 06:11] LABS: #Basophils 0.1 thou/uL (0.0-0.2); #Eosinphils 0.3 thou/uL (0.0-0.7); #Lymphocytes 1.7 thou/uL (1.20-3.40); #Monocytes 0.7 thou/uL (0.11-0.59); #Neutrophils 4.7 thou/uL (1.40-6.50); %Basophils 1.4 % (0.0-1.0); %Eosinophils 3.9 % (0.0-10.0); %Lymphocytes 22.8 % (21.0-51.0); %Monocytes 9.7 % (0.0-10.0); %Neutrophils 62.2 % (42.0-75.0); Hemoglobin 8.9 g/dL (12.0-16.0); Mean Corpuscular HGB CONC 30.2 g/dL (32.0-36.0); Mean Corpuscular Hemoglobin 31.4 pg (27.0-31.0); Mean Platelet Volume 9.7 fL (7.4-10.4); Platelet Count 149 thou/uL (130-400); RBC Distribution Width 13.9 % (11.5-14.5); Red Blood Cell (RBC) Count 2.83 mill/uL (4.20-5.40); White Blood Cell (WBC) Count 7.6 thou/uL (4.8-10.8)
[2018-04-18 06:19] LABS: Anion Gap 13 mmol/L (10-20); BUN (Urea Nitrogen) 38 mg/dL (9.8-20.1); Calc. Creatinine Clearance 20 mL/min (70-130); Calcium 8.7 mg/dL (7.8-10.44); Carbon Dioxide 15 mmol/L (23-31); Chloride 118 mmol/L (98-107); Estimated GFR-MDRD 39; Glucose 86 mg/dL (83-110); Potassium 5.6 mmol/L (3.5-5.1); Sodium 140 mmol/L (136-145)
[2018-04-18 06:23] LABS: Troponin I Less than 0.010 ng/mL (< 0.028)
--- NOTE | 2018-04-18 06:51 | HP ---
CHIEF COMPLAINT: Choking. HISTORY OF PRESENT ILLNESS: This patient is an 87-year-old female who [facility]. EMS was called to the jail with report that the patient had been choking on a piece of pizza that she was eating and had gone unresponsive. Employee attempted a Heimlich maneuver and the patient be aden breathing again, but remained unresponsive. On EMS arrival, the patient had some hypoxia with ox ygen saturations around 80%, but was breathing at a normal rate. She apparently had some "crackly so unds" sounds on the left lung with the right side remained clear. They attempted to use a laryngosco pe to evaluate the patient and there was no evidence of retained food bolus and the patient was subse quently brought to the emergency department. In the emergency department, the patient was somewhat h ypertensive, but was satting well on room air and her only intervention in the ER was given fluids of 1 liter normal saline. Currently, the patient says she feels fine. She is complaining of some ches t pain. She does not really recall the events that happened at the nursing facility. She says liliam marsh told her that there had been some problem with her heart, but that is all that she really knows ab out the event. She does continue to have that chest discomfort. The patient also reports that she h ad recently had several seizures. She does have this history, I have no way to confirm that. PAST MEDICAL HISTORY: Gastroesophageal reflux, severe rheumatoid arthritis, peripheral vascular dise ase, history of DVT, dyslipidemia, hypertension, osteoarthritis, chronic kidney disease stage 3, anem ia of renal disease, history of methicillin-resistant Staphylococcus aureus infection of the right kn ee, Charcot foot on the right, idiopathic progressive polyneuropathy, chronic pain syndrome and histo ry of left below-knee amputation. Anxiety and depression. PAST SURGICAL HISTORY: Left BKA, surgery for debridement of right knee MRSA infection, pain pump in the right lower quadrant. A left [id number] amputation, spinal fusion, cholecystectomy, hysterec rosa, bilateral shoulder surgery, right and left ankle surgery, multiple hand surgeries, IVC filter p lacement for prior DVT and bilateral cataractectomy. FAMILY HISTORY: Diabetes, hypertension in numerous family members. SOCIAL HISTORY: The patient is a nonsmoker, nondrinker, nondrug user. She lives at the [facility]. She has an out of hospital DNR in the record, but she states that she would like to be a ful l code and that her would be her surrogate decision maker. Her continues to reside a [facility]. ALLERGIES: CARBAMAZEPINE, TOLTERODINE. MEDICATIONS: Sulfasalazine 1000 mg b.i.d., oxycodone 5 mg q.4 hours p.r.n., Keppra 250 p.o. b.i.d., guaifenesin p.r.n., MiraLax every day p.r.n., Procardia-XL 60 mg every day, Theragran 1 p.o. daily, Biofreeze p.r.n., Synthroid 100 mcg p.o. daily, acidophilus 1 cap daily, labetalol [address]., Pl aquenil 200 mg every day, gabapentin 100 mg t.i.d., ferrous sulfate 325 t.i.d., Cymbalta 60 every d ay, vitamin D 3 1000 units every day. Capsaicin topical patch p.r.n., atorvastatin 10 mg at bedtime, aspirin 81 mg every day, Tylenol p.r.n. PHYSICAL EXAMINATION: VITAL SIGNS: Temperature is 97.4, pulse 63, respiratory, BP was 199/83, O2 sats 92% on room air. GENERAL APPEARANCE: Age appropriate female. She is in no distress. She is pleasant and conversant. She seems unsure of the events of that led her here this evening, but generally appears fairly well oriented and coherent. HEENT: PERRL. No OP lesions. NECK: Supple and symmetric without lymphadenopathy. CARDIOVASCULAR: Regular rate and rhythm with no murmurs noted. LUNGS: Clear to auscultation bilaterally with good chest wall expansion and air exchange. No wheeze s or rales were noted presently. ABDOMEN: Soft, nondistended with bowel sounds present. EXTREMITIES: Warm and dry without edema. Left BKA present. LABORATORY DATA: White blood cell count 8.1, hemoglobin 9.3, MCV is 105. Chemistries notable for po tassium of 6.4, chloride 114, CO2 is 14, BUN 47, creatinine 1.67. Lactic acid was 0.8, AST 19, ALT 1 3. Troponin less than 0.01. Urinalysis essentially negative. Chest x-ray: Cardiomegaly with chronic lung findings only. CT of the brain shows no acute intracran ial abnormalities. There is atherosclerosis and partial opacification of the left mastoid air cells and maxillary sinus. ASSESSMENT AND PLAN: 1. Possible choking episode. Details are sketchy, it sounds like the patient went unconscious and d id have a Heimlich maneuver performed. She did subsequently start breathing, but it is unclear if th ere was actually any food extracted. The patient had a laryngoscope exam with no retained food bolus . The patient subsequently has regained consciousness and appears to be pretty much what I would thi nk would be her baseline. We will go ahead and place in observation on telemetry and continue to mon itor. We will recheck labs and x-ray in the morning to assure she is not having any aspiration pneum onitis developing. 2. Hyperkalemia. Repeat the patient's BMP and determine if we need to do anything further than hydr ation for the hyperkalemia. 3. Chronic kidney disease. Her BUN and creatinine appear to be fairly close to her baseline from a year ago. 4. Chronic macrocytic anemia. Levels are essentially at her baseline. 5. History of seizure disorder. It is unclear if this patient may have experienced another seizure. There was no tonic clonic activity described by witnesses, but certainly that possibility exists as well. DISPOSITION: The patient says she wants to be FULL CODE. She does have an out of facility DNR. May need to have followup conversation with the patient and her family. If the patient continues to do well, has no significant findings on telemetry, labs and follow up x-rays are okay, she may be able t o discharge back to the nursing facility fairly soon.
[2018-04-18] MEDS: Labetalol 100 MG TAB PO SCH ×2 (08:55→21:49)
[2018-04-18] MEDS: DULoxetine 60 MG CAP PO SCH (08:55)
[2018-04-18] MEDS: Ferrous Sulfate 325 MG TAB PO SCH ×3 (08:57→17:08)
[2018-04-18] MEDS: NIFEdipine XL 60 MG TAB PO SCH (08:57)
[2018-04-18] MEDS: Gabapentin 100 MG CAP PO SCH ×3 (08:57→21:50)
[2018-04-18] MEDS: Aspirin 81 mg Enteric Coated Tablet PO SCH (08:57)
[2018-04-18] MEDS: Hydroxychloroquine Sulfate 200 MG TAB PO SCH (08:57)
[2018-04-18] MEDS: sulfaSALAzine 500 MG TAB PO SCH ×2 (08:57→21:50)
[2018-04-18] MEDS: levETIRAcetam 500 mg/5 ml Oral Solution PO SCH ×2 (08:59→21:50)
[2018-04-18] MEDS ORDERED: Prevnar 13-Val Conj/PF 0.5 ML SYRINGE IM ONE (09:00)
[2018-04-18] MEDS ORDERED: Sodium Bicarbonate Tab 325 MG TAB PO SCH ×2 (11:30→21:00)
[2018-04-18 12:01] VITALS: BMI 16.8
[2018-04-18] MEDS ORDERED: Calcium Carbonate 500 MG ChewTAB PO PRN (12:03)
[2018-04-18] MEDS ORDERED: Acetaminophen 325 MG TAB PO PRN (12:03)
[2018-04-18] MEDS ORDERED: Nitroglycerin 0.4 MG TAB (25 Tab Bottle) PO PRN (12:03)
[2018-04-18] MEDS ORDERED: hydrALAZINE 20 MG/ML VIAL SLOW IVP PRN (12:08)
[2018-04-18] MEDS ORDERED: Labetalol HCl 100 MG/20 ML VIAL SLOW IVP PRN (12:08)
[2018-04-18] MEDS ORDERED: Sodium Bicarbonate 150 MEQ in Dextrose 5% in Water 1,000 ML IV SCH (12:15)
--- NOTE | 2018-04-18 13:35 | CON ---
DATE OF CONSULTATION: 04/18/2018 REFERRING PHYSICIAN: Dr. Domingo REASON FOR CONSULT: 1. Hyperkalemia. 2. Metabolic acidosis. REASON FOR ADMISSION: Choking episodes. HISTORY OF PRESENT ILLNESS: : This is an 87-year-old female who was brought from the longterm after a choking episode and she had Heimlich maneuver. She was found to have potassium of 6.4 on admission and got better to 5.6 today and a creatinine of 1.6, better to 1.3 today. The patient is not able to give a good history. The patient said that she has been having swallowing difficulty, but denies any diarrhea, nausea, vomiting, no fever or chills. No skin rash. PAST MEDICAL HISTORY: Positive for rheumatoid arthritis, gastroesophageal reflux disease, peripheral vascular disease, DVT, hyperlipidemia, hypertension, osteoarthritis, CKD, anemia, MRSA, Charcot, anxiety, depression. PAST SURGICAL HISTORY: BKA surgery and right knee MRSA infection. Cholecystectomy, hysterectomy, bilateral shoulder surgeries, right and left ankle surgery, multiple hand surgery, bilateral cataract surgery. HOME MEDICATIONS: Oxycodone, Keppra, Zofran, ____, MiraLax, Procardia, ____, Synthroid, acidophilus, Lipitor, Plaquenil, albumin, ferrous sulfate, Cymbalta, vitamin D3 capsules and was on aspirin and Tylenol. ALLERGIES: ASPIRIN and TOLTERODINE. SOCIAL HISTORY: No smoking, alcohol, drugs. FAMILY HISTORY: Positive for diabetes. REVIEW OF SYSTEMS: The following complete review of systems was negative, unless otherwise mentioned in the HPI or below: Constitutional: Weight loss or gain, ability to conduct usual activities. Skin: Rash, itching. Eyes: Double vision, pain. ENT/Mouth: Nose bleeding, neck stiffness, pain, tenderness. Cardiovascular: Palpitations, dyspnea on exertion, orthopnea. Respiratory: Shortness of breath, wheezing, cough, hemoptysis, fever or night sweats. Gastrointestinal: Poor appetite, abdominal pain, heartburn, nausea, vomiting, constipation, or diarrhea. Genitourinary: Urgency, frequency, dysuria, nocturia. Musculoskeletal: Pain, swelling. Neurologic/Psychiatric: Anxiety, depression. Allergy/Immunologic: Skin rash, bleeding tendency. PHYSICAL EXAMINATION: GENERAL: This is a thin-built female in no apparent distress. VITAL SIGNS: Temperature 96.5, pulse 75, respiratory rate 18, blood pressure 196/83. HEENT: Atraumatic, normocephalic. Oral mucosa is moist. NECK: Supple. CARDIOVASCULAR: S1, S2 heard. Rate and rhythm regular. RESPIRATORY: Clear. ABDOMEN: Soft. MUSCULOSKELETAL: 1+ edema. DERMATOLOGIC: No rash. NEUROLOGIC: Alert, awake. PSYCHIATRIC: Mood and affect normal. DATA: Hemoglobin is 8.9, potassium is 5.6, BUN 30, creatinine 1.3. ASSESSMENT AND PLAN: 1. Acute kidney injury, most likely volume depletion. 2. Metabolic acidosis. We will add bicarbonate drip. 3. Hyperkalemia, most likely secondary to metabolic acidosis. We will have bicarbonate drip for a liter and continue oral bicarbonate 4. Edema, controlled. 5. Hypertension. Titrate medications. Plan is to add bicarbonate drip. Limit potassium in the diet and we will follow. Thank you for the consult. LORI
--- NOTE | 2018-04-18 14:54 | ULT ---
BILATERAL RENAL ULTRASOUND: HISTORY: An 87-year-old female with acute renal insufficiency. FINDINGS: The right kidney measures 5.4 cm in length, and the left kidney measures 6.3 cm in length. There is bilateral cortical thinning. No definite focal mass or hydronephrosis is seen on either side. The u rinary bladder is unremarkable. Incidental note is made of right-sided pleural effusion. IMPRESSION: 1. No evidence of high grade obstruction. 2. Findings indicative of chronic medical renal disease. 3. Right pleural effusion. POS: CHARLESH
--- NOTE | 2018-04-18 21:20 | PDOC.PN ---
- Subjective Encounter Start Date: 04/18/18 Encounter Start Time: 10:45 Patient seen and examined for SKI/Met acidosis Feels better.. No new complaints. No overnight events - Objective Resuscitation Status: Resuscitation Status FULL:Full Resuscitation MAR Reviewed: Yes Vital Signs & Weight: Vital Signs (12 hours) Temp Pulse Resp BP Pulse Ox 04/18/18 16:00 97.7 F 73 18 164/68 H 93 L 04/18/18 12:00 98.1 F 72 17 168/72 H 93 L Weight Admit Weight 91 lb 11.2 oz Weight 92 lb 3.2 oz I&O: 04/17/18 04/18/18 04/19/18 06:59 06:59 06:59 Intake Total 180 590 Balance 180 590 Result Diagrams: 04/18/18 05:51 04/18/18 05:51 EKG Reviewed by me: Yes (Tele SR) Phys Exam - Physical Examination Constitutional: NAD Respiratory: no wheezing, no rhonchi Cardiovascular: RRR, no rub Gastrointestinal: soft, non-tender, positive bowel sounds Musculoskeletal: no edema Neurological: moves all 4 limbs Dx/Plan - Plan DVT proph w/heparin, DVT proph w/SCDs 1. Swallow dysfunction Started on Mech soft diet 2. MERVAT on CKD 3/Metabolic acidosis/ Hyperkalemia / Dehydration Start Bicarb drip, Low Potassium diet, s/p Kayexalate 3. CP Troponin neg, Echo 4. HTN Cont Procardia XL/Labetalol 5. Hypothyroidism Cont Levothyroidism 6. Other issues per previous notes Review of Systems - Review of Systems Respiratory: negative: Cough, Dry, Shortness of Breath, Hemoptysis, SOB with Excertion, Pleuritic Pain, Sputum, Wheezing Cardiovascular: negative: chest pain, palpitations, orthopnea, paroxysmal nocturnal dyspnea, edema, light headedness, other - Medications/Allergies Allergies/Adverse Reactions: Allergies Allergy/AdvReac Type Severity Reaction Status Date / Time carbamazepine [From Tegretol] Allergy Rash Verified 11/16/13 14:53 tolterodine tartrate Allergy Verified 11/16/13 14:53 [From Detrol] Medications: Current Medications Acetaminophen (Tylenol) 650 mg PO Q4H PRN PRN Reason: Headache/Fever/Mild Pain (1-3) Hydrocodone Bitart/Acetaminophen ([place] 5/325) 1 tab PO Q4H PRN PRN Reason: Moderate to Severe Pain (6-10) Last Admin: 04/18/18 15:42 Dose: 1 tab Aspirin (Ecotrin) 81 mg PO DAILY [facility] Last Admin: 04/18/18 08:57 Dose: 81 mg Atorvastatin Calcium (Lipitor) 10 mg PO HS [facility] Calcium Carbonate (Tums) 1,000 mg PO Q4H PRN PRN Reason: Heartburn or Indigestion Duloxetine HCl (Cymbalta) 60 mg PO DAILY [facility] Last Admin: 04/18/18 08:55 Dose: 60 mg Famotidine (Pepcid) 20 mg PO 2100 [facility] Ferrous Sulfate (Feosol) 325 mg PO TID[facility] Last Admin: 04/18/18 17:08 Dose: 325 mg Gabapentin (Neurontin) 100 mg PO TID [facility] Last Admin: 04/18/18 15:42 Dose: 100 mg Heparin Sodium (Porcine) (Heparin) 5,000 units SC BID [facility] Hydralazine HCl (Apresoline) 10 mg SLOW IVP Q4H PRN PRN Reason: SBP > 185, DBP > 100 Last Admin: 04/18/18 01:27 Dose: 10 mg Hydralazine HCl (Apresoline) 10 mg SLOW IVP Q4H PRN PRN Reason: SBP Greater Than 180 Hydroxychloroquine Sulfate (Plaquenil) 200 mg PO DAILY [facility] Last Admin: 04/18/18 08:57 Dose: 200 mg Sodium Bicarbonate 150 meq/ (Dextrose/Water) 1,150 mls @ 100 mls/hr IV NOW [facility] Stop: 04/18/18 23:44 Last Admin: 04/18/18 12:20 Dose: 1,150 mls Labetalol HCl (Normodyne) 200 mg PO BID [facility] Last Admin: 04/18/18 08:55 Dose: 200 mg Labetalol HCl (Normodyne) 10 mg SLOW IVP Q4H PRN PRN Reason: Systolic BP > 180 Levetiracetam (Keppra Oral Solution) 250 mg PO BID [facility] Last Admin: 04/18/18 08:59 Dose: 250 mg Levothyroxine Sodium (Synthroid) 100 mcg PO 0600 [facility] Last Admin: 04/18/18 05:29 Dose: 100 mcg Nifedipine (Procardia Xl) 60 mg PO DAILY [facility] Last Admin: 04/18/18 08:57 Dose: 60 mg Nitroglycerin (Nitrostat) 0.4 mg PO Q5MIN PRN PRN Reason: Chest Pain Polyethylene Glycol (Miralax) 17 gm PO DAILY PRN PRN Reason: Constipation Senna/Docusate Sodium (Senokot S) 1 tab PO BID [facility] Sodium Chloride (Flush - Normal Saline) 10 ml IVF PRN PRN PRN Reason: Saline Flush Sulfasalazine (Azulfidine) 1,000 mg PO BID [facility] Last Admin: 04/18/18 08:57 Dose: 1,000 mg
[2018-04-18] MEDS: Famotidine 20 MG TAB PO SCH (21:49)
[2018-04-18] MEDS: Senokot S 8.6-50 MG TAB PO SCH (21:50)
[2018-04-18] MEDS: Atorvastatin Calcium 10 MG TAB PO SCH (21:50)
[2018-04-18] MEDS: Heparin 5,000 UNITS/ML VIAL SC SCH (21:51)
[2018-04-19] MEDS: Levothyroxine Sodium 100 MCG TAB PO SCH (05:56)
[2018-04-19 06:03] LABS: #Basophils 0.1 thou/uL (0.0-0.2); #Eosinphils 0.3 thou/uL (0.0-0.7); #Lymphocytes 1.8 thou/uL (1.20-3.40); #Monocytes 0.8 thou/uL (0.11-0.59); #Neutrophils 3.6 thou/uL (1.40-6.50); %Basophils 1.6 % (0.0-1.0); %Monocytes 12.5 % (0.0-10.0); %Neutrophils 53.9 % (42.0-75.0); Hemoglobin 8.7 g/dL (12.0-16.0); Mean Corpuscular Hemoglobin 31.6 pg (27.0-31.0); Mean Platelet Volume 9.5 fL (7.4-10.4); Platelet Count 143 thou/uL (130-400); Red Blood Cell (RBC) Count 2.76 mill/uL (4.20-5.40); White Blood Cell (WBC) Count 6.7 thou/uL (4.8-10.8)
[2018-04-19 06:27] LABS: Anion Gap 13 mmol/L (10-20); BUN (Urea Nitrogen) 32 mg/dL (9.8-20.1); Calc. Creatinine Clearance 22 mL/min (70-130); Calcium 8.5 mg/dL (7.8-10.44); Carbon Dioxide 21 mmol/L (23-31); Chloride 111 mmol/L (98-107); Estimated GFR-MDRD 45; Glucose 88 mg/dL (83-110); Magnesium 1.8 mg/dL (1.6-2.6); Potassium 4.6 mmol/L (3.5-5.1); Sodium 140 mmol/L (136-145)
[2018-04-19] MEDS: Gabapentin 100 MG CAP PO SCH ×3 (08:47→21:17)
[2018-04-19] MEDS: Senokot S 8.6-50 MG TAB PO SCH ×2 (08:48→21:17)
[2018-04-19] MEDS: NIFEdipine XL 60 MG TAB PO SCH (08:48)
[2018-04-19] MEDS: Hydroxychloroquine Sulfate 200 MG TAB PO SCH (08:48)
[2018-04-19] MEDS: Labetalol 100 MG TAB PO SCH ×2 (08:49→21:16)
[2018-04-19] MEDS: Aspirin 81 mg Enteric Coated Tablet PO SCH (08:49)
[2018-04-19] MEDS: Ferrous Sulfate 325 MG TAB PO SCH ×3 (08:49→17:11)
[2018-04-19] MEDS: DULoxetine 60 MG CAP PO SCH (08:49)
[2018-04-19] MEDS: sulfaSALAzine 500 MG TAB PO SCH ×2 (08:49→21:17)
[2018-04-19] MEDS: Heparin 5,000 UNITS/ML VIAL SC SCH ×2 (08:49→21:17)
[2018-04-19] MEDS: levETIRAcetam 500 mg/5 ml Oral Solution PO SCH ×2 (09:02→21:16)
--- NOTE | 2018-04-19 18:01 | PRG ---
DATE OF SERVICE: 04/19/2018 SUBJECTIVE: Patient was seen and examined at bedside and overnight events noted. Patient denies any shortness of breath or chest pain or palpitation. No history of nausea or vomiting or diarrhea or f ever or chills or cramps. OBJECTIVE: GENERAL: This is an elderly female in no apparent distress. VITAL SIGNS: Temperature 97.7, pulse 60, respiratory rate 18, blood pressure 141/64. HEENT: Atraumatic, normocephalic. Oral mucosa is moist. NECK: Supple. CARDIOVASCULAR: S1, S2 heard. Rate and rhythm regular. RESPIRATORY: Clear to auscultation. GASTROINTESTINAL: Abdomen is soft. MUSCULOSKELETAL: No tenderness. No edema. DERMATOLOGIC: No skin rash. NEUROLOGIC: Alert and awake and oriented x3. No focal neurologic deficits. Moving all the extremiti es. PSYCHIATRIC: Mood and affect normal. LABORATORY DATA: Potassium is 4.6, BUN 32, creatinine is 1.51. ASSESSMENT AND PLAN: 1. Acute kidney injury, much better. 2. Metabolic acidosis, stable. 3. Hypokalemia, better. 4. Hypertension, stable. 5. Labs are stable and avoid nephrotoxins.
[2018-04-19] MEDS: Famotidine 20 MG TAB PO SCH (21:17)
[2018-04-19] MEDS: Atorvastatin Calcium 10 MG TAB PO SCH (21:17)
--- NOTE | 2018-04-19 22:17 | PDOC.PN ---
- Subjective Encounter Start Date: 04/19/18 Encounter Start Time: 10:30 Patient seen and examined for MERVAT/Acidosis. No new complaints. No overnight events - Objective Resuscitation Status: Resuscitation Status FULL:Full Resuscitation MAR Reviewed: Yes Vital Signs & Weight: Vital Signs (12 hours) Temp Pulse Pulse Pulse Resp BP BP 04/19/18 21:16 71 184/77 H 04/19/18 19:50 98.0 F 71 14 04/19/18 16:00 97.7 F 67 18 04/19/18 14:06 72 74 141/64 H 04/19/18 12:00 98.2 F 66 18 BP BP Pulse Ox 04/19/18 21:16 04/19/18 19:50 184/77 H 92 L 04/19/18 16:00 180/77 H 93 L 04/19/18 14:06 162/88 H 04/19/18 12:00 161/70 H 93 L Weight Admit Weight 91 lb 11.2 oz Weight 90 lb 9.6 oz I&O: 04/18/18 04/19/18 04/20/18 06:59 06:59 06:59 Intake Total 180 1340 600 Balance 180 1340 600 Result Diagrams: 04/20/18 05:09 04/20/18 05:09 EKG Reviewed by me: Yes (Tele SR) Phys Exam - Physical Examination Constitutional: NAD Respiratory: no wheezing, no rhonchi Cardiovascular: RRR, no rub Gastrointestinal: soft, non-tender, positive bowel sounds Musculoskeletal: no edema Dx/Plan - Plan DVT proph w/heparin, DVT proph w/SCDs 1. Swallow dysfunction Cont Mech soft diet 2. MERVAT on CKD 3/Metabolic acidosis/ Hyperkalemia / Dehydration - improving s/p Bicarb drip and Kayexalate AM labs 3. CP Troponin neg, Echo normal EF 4. HTN Cont Procardia XL/Labetalol with PRN med 5. Hypothyroidism Cont Levothyroxine 6. Mod - Sev AR/ Mod MR/Underweight/Other issues per previous notes Review of Systems - Review of Systems Respiratory: negative: Cough, Dry, Shortness of Breath, Hemoptysis, SOB with Excertion, Pleuritic Pain, Sputum, Wheezing Cardiovascular: negative: chest pain, palpitations, orthopnea, paroxysmal nocturnal dyspnea, edema, light headedness, other - Medications/Allergies Allergies/Adverse Reactions: Allergies Allergy/AdvReac Type Severity Reaction Status Date / Time carbamazepine [From Tegretol] Allergy Rash Verified 11/16/13 14:53 tolterodine tartrate Allergy Verified 11/16/13 14:53 [From Detrol] Medications: Current Medications Acetaminophen (Tylenol) 650 mg PO Q4H PRN PRN Reason: Headache/Fever/Mild Pain (1-3) Hydrocodone Bitart/Acetaminophen ([place] 5/325) 1 tab PO Q4H PRN PRN Reason: Moderate to Severe Pain (6-10) Last Admin: 04/18/18 15:42 Dose: 1 tab Aspirin (Ecotrin) 81 mg PO DAILY [facility] Last Admin: 04/19/18 08:49 Dose: 81 mg Atorvastatin Calcium (Lipitor) 10 mg PO HS [facility] Last Admin: 04/19/18 21:17 Dose: 10 mg Calcium Carbonate (Tums) 1,000 mg PO Q4H PRN PRN Reason: Heartburn or Indigestion Duloxetine HCl (Cymbalta) 60 mg PO DAILY [facility] Last Admin: 04/19/18 08:49 Dose: 60 mg Famotidine (Pepcid) 20 mg PO 2100 [facility] Last Admin: 04/19/18 21:17 Dose: 20 mg Ferrous Sulfate (Feosol) 325 mg PO TID[facility] Last Admin: 04/19/18 17:11 Dose: 325 mg Gabapentin (Neurontin) 100 mg PO TID [facility] Last Admin: 04/19/18 21:17 Dose: 100 mg Heparin Sodium (Porcine) (Heparin) 5,000 units SC BID [facility] Last Admin: 04/19/18 21:17 Dose: 5,000 units Hydralazine HCl (Apresoline) 10 mg SLOW IVP Q4H PRN PRN Reason: SBP > 185, DBP > 100 Last Admin: 04/18/18 01:27 Dose: 10 mg Hydralazine HCl (Apresoline) 10 mg SLOW IVP Q4H PRN PRN Reason: SBP Greater Than 180 Hydroxychloroquine Sulfate (Plaquenil) 200 mg PO DAILY [facility] Last Admin: 04/19/18 08:48 Dose: 200 mg Labetalol HCl (Normodyne) 200 mg PO BID [facility] Last Admin: 04/19/18 21:16 Dose: 200 mg Labetalol HCl (Normodyne) 10 mg SLOW IVP Q4H PRN PRN Reason: Systolic BP > 180 Levetiracetam (Keppra Oral Solution) 250 mg PO BID [facility] Last Admin: 04/19/18 21:16 Dose: 250 mg Levothyroxine Sodium (Synthroid) 100 mcg PO 0600 [facility] Last Admin: 04/19/18 05:56 Dose: 100 mcg Nifedipine (Procardia Xl) 60 mg PO DAILY [facility] Last Admin: 04/19/18 08:48 Dose: 60 mg Nitroglycerin (Nitrostat) 0.4 mg PO Q5MIN PRN PRN Reason: Chest Pain Polyethylene Glycol (Miralax) 17 gm PO DAILY PRN PRN Reason: Constipation Senna/Docusate Sodium (Senokot S) 1 tab PO BID [facility] Last Admin: 04/19/18 21:17 Dose: 1 tab Sodium Chloride (Flush - Normal Saline) 10 ml IVF PRN PRN PRN Reason: Saline Flush Last Admin: 04/19/18 08:50 Dose: 10 ml Sulfasalazine (Azulfidine) 1,000 mg PO BID [facility] Last Admin: 04/19/18 21:17 Dose: 1,000 mg
[2018-04-20] MEDS: hydrALAZINE 20 MG/ML VIAL SLOW IVP PRN (03:49)
[2018-04-20 06:01] LABS: #Basophils 0.1 thou/uL (0.0-0.2); #Eosinphils 0.4 thou/uL (0.0-0.7); #Neutrophils 4.6 thou/uL (1.40-6.50); %Basophils 1.3 % (0.0-1.0); %Eosinophils 4.5 % (0.0-10.0); %Lymphocytes 24.5 % (21.0-51.0); %Monocytes 12.6 % (0.0-10.0); %Neutrophils 57.1 % (42.0-75.0); Hemoglobin 8.9 g/dL (12.0-16.0); Mean Corpuscular HGB CONC 30.9 g/dL (32.0-36.0); Mean Corpuscular Hemoglobin 31.9 pg (27.0-31.0); Mean Platelet Volume 9.7 fL (7.4-10.4); Platelet Count 151 thou/uL (130-400); Red Blood Cell (RBC) Count 2.78 mill/uL (4.20-5.40); White Blood Cell (WBC) Count 8.1 thou/uL (4.8-10.8)
[2018-04-20 06:16] LABS: Anion Gap 12 mmol/L (10-20); BUN (Urea Nitrogen) 30 mg/dL (9.8-20.1); Calc. Creatinine Clearance 20 mL/min (70-130); Carbon Dioxide 22 mmol/L (23-31); Chloride 110 mmol/L (98-107); Estimated GFR-MDRD 41; Glucose 84 mg/dL (83-110); Magnesium 1.8 mg/dL (1.6-2.6); Potassium 4.5 mmol/L (3.5-5.1); Sodium 139 mmol/L (136-145)
[2018-04-20] MEDS: Levothyroxine Sodium 100 MCG TAB PO SCH (06:17)
--- NOTE | 2018-04-20 08:18 | PQF ---
CLINICAL DOCUMENTATION IMPROVEMENT CLARIFICATION FORM: ICD-10 Updated PLEASE DO AN ADDENDUM TO THE PROGRESS NOTE WITH ANY DOCUMENTATION UPDATES OR ADDITIONS AND CARRY THROUGH TO DC SUMMARY. THANK YOU. DATE: 04/20 ATTN: DR. JACQUELINE MCKEON Please exercise your independent, professional judgment in responding to the clarification form. Clinical indicators are provided on the bottom of this form for your review. Please check appropriate box(s): BMI <19.0 with associated diagnosis of: (check one) [ ] Underweight [ ] Cachexia [ ] Other diagnosis [ ] Unable to determine For continuity of documentation, please document condition throughout progress notes and discharge summary. Thank You. BMI < 19 Under weight 19 - 24.9 Healthy 25.0 - 29.9 Slightly Overweight 30.0 - 34.9 Obese 35.0 - 39.9 Severely Obese 40.0 and Over Morbidly Obese CLINICAL INDICATORS - SIGNS / SYMPTOMS / LABS BMI: 16.6 (ESTIMATED PRE-AMPUTATION BMI: 17.8 PER TUNNEL DRIER OPERATOR) TUNNEL DRIER OPERATOR ASSESSMENT 04/18: NUTRITION DIAGNOSIS: DYSPHAGIA, SUSPECTED SMALL APPETITE; 4.5% WEIGHT LOSS FROM UBW, ADJUST BMI 17.8 RISK FACTORS: DYSPHAGIA ADVANCED AGE (87) TREATMENTS: TUNNEL DRIER OPERATOR ASSESSMENT (04/18) NUTRITIONAL SUPPLEMENT (SUPLENA BID 04/18 - PRESENT) THANK YOU! Inez (This form is maintained as a part of the permanent medical record) 2014 [employer]. All Rights Reserved Inez Reynolds RN, BSN [email or web address] Office: [phone] [facility]
[2018-04-20] MEDS: Heparin 5,000 UNITS/ML VIAL SC SCH (09:16)
[2018-04-20] MEDS: Ferrous Sulfate 325 MG TAB PO SCH ×2 (09:17→11:47)
[2018-04-20] MEDS: levETIRAcetam 500 mg/5 ml Oral Solution PO SCH (09:17)
[2018-04-20] MEDS: Gabapentin 100 MG CAP PO SCH (09:17)
[2018-04-20] MEDS: Aspirin 81 mg Enteric Coated Tablet PO SCH (09:17)
[2018-04-20] MEDS: DULoxetine 60 MG CAP PO SCH (09:17)
[2018-04-20] MEDS: Labetalol 100 MG TAB PO SCH (09:17)
[2018-04-20] MEDS: sulfaSALAzine 500 MG TAB PO SCH (09:17)
[2018-04-20] MEDS: Hydroxychloroquine Sulfate 200 MG TAB PO SCH (09:18)
[2018-04-20] MEDS: Senokot S 8.6-50 MG TAB PO SCH (09:18)
[2018-04-20] MEDS: NIFEdipine XL 60 MG TAB PO SCH (09:18)
[2018-04-20 11:44] VITALS: BP 126/59
[2018-04-20 11:47] VITALS: TEMP 96.5
--- NOTE | 2018-04-20 14:21 | DIS ---
DATE OF DISCHARGE: 04/20/2018 DISCHARGE DISPOSITION: [place] at [facility]. DISCHARGE MEDICATIONS: Sodium bicarbonate 325 mg 3 times daily for 5 days. All other home medicatio ns were left unchanged. Repeat base met next week is recommended. Primary care physician advised to follow. INPATIENT CONSULTANTS: Nephrology, Dr. Garcia. BRIEF HOSPITAL COURSE: The patient is an 87-year-old female, currently residing at [facility], presented to the hospital with a choking episode while she was eating pizza. She also becam e unresponsive after the above episode. Her O2 sats were in 80s per EMS. She was brought into the ospital for further evaluation. In the emergency room, she was found to have acute kidney injury with hyperkalemia with potassium 6.4 . Her bicarbonate was 14. ABG showed pH of 7.24 with bicarbonate 15.8, pCO2 of 37.5 with pO2 of 79. 3. She was started on bicarbonate drip with good improvement. The patient was also seen by Nephrolo gy, Dr. Garcia. Her creatinine on the day of discharge is 1.24 with BUN 30 with bicarbonate 22. e will continue sodium bicarbonate p.o. for another 5 days. She has been cleared by consultants for discharge. DIAGNOSTIC TESTS: 1. Echocardiogram showed left ventricular ejection fraction 50%-55% with [id number] aortic r egurgitation and moderate mitral regurgitation. 2. CT scan of the brain on admission was negative. Chest x-ray was negative for infiltrate. Renal ultrasound was negative for obstructive uropathy. It showed right-sided pleural effusion. FINAL DIAGNOSES: 1. Swallow dysfunction. Patient has been started on mechanical soft diet per speech therapy recomme ndation. 2. Acute kidney injury on chronic kidney disease, stage 3, with metabolic acidosis and hyperkalemia. 3. Dehydration. 4. Chest pain. Troponins were negative. Echocardiogram was done as discussed above. 5. Hypertension. 6. Hypothyroidism. 7. Vneaggtl-ju-jkmjes aortic regurgitation. 8. Moderate mitral regurgitation. 9. Underweight. Plan of care was discussed with the patient and the family in detail. They stated understanding.
--- NOTE | 2018-04-20 20:57 | PRG ---
DATE OF SERVICE: 04/20/2018 Subjective: Patient was seen and examined at bedside and overnight events noted. Patient denies any shortness of breath or chest pain or palpitation. No history of nausea or vomiting or diarrhea or fever or chills or cramps. Objective: This is an elderly female in no apparent distress. Vital signs: Temperature 98.6. Pulse 67. Respiratory rate 18. Blood pressure 126/59. HEENT: Atraumatic, normocephalic, Oral mucosa is moist Neck: Supple Cardiovascular: S1S2 heard, Rate and rhythm regular Respiratory: Clear to auscultation Gastrointestinal: Abdomen is soft Musculoskeletal : No tenderness, No edema Dermatologic : No skin rash Neurologic: Alert and awake and oriented X3, No focal neurologic deficits. Moving all the extremities . Psychiatric: Mood and affect normal Laboratory data: Potassium is 4.5, BUN is 30, creatinine 1.2. Assessment and Plan: 1. Acute kidney injury on chronic kidney disease stage 3, stable. 2. Metabolic acidosis, stable. 3. Edema, controlled. 4. Hyperkalemia, stable. Overall, labs are stable, okay to discharge.
== END 2018-04-20 13:55 | disposition home or self-care (01) | DRG 683 ==
LOC: ERS 17:11 → 2NO 20:40 → OBSVTOIN 04-18 09:38
PROVIDERS: ADMIT Internal Medicine; ATTEND Internal Medicine
DX: N17.9 Acute kidney failure, unspecified (principal); E87.2 Acidosis; Z68.1 Body mass index [BMI] 19.9 or less, adult; A52.16 Charcot's arthropathy (tabetic); I12.9 Hypertensive chronic kidney disease with stage 1 through stage 4 chronic kidney disease, or unspecified chronic kidney disease; N18.3 Chronic kidney disease, stage 3 (moderate); E03.9 Hypothyroidism, unspecified; I08.0 Rheumatic disorders of both mitral and aortic valves; R63.6 Underweight; E87.5 Hyperkalemia; E86.0 Dehydration; T17.928A Food in respiratory tract, part unspecified causing other injury, initial encounter; K21.9 Gastro-esophageal reflux disease without esophagitis; M06.9 Rheumatoid arthritis, unspecified; Z86.718 Personal history of other venous thrombosis and embolism; E78.5 Hyperlipidemia, unspecified; M19.90 Unspecified osteoarthritis, unspecified site; F32.9 Major depressive disorder, single episode, unspecified; R13.10 Dysphagia, unspecified; D63.1 Anemia in chronic kidney disease; G89.29 Other chronic pain; G40.409 Other generalized epilepsy and epileptic syndromes, not intractable, without status epilepticus; E87.6 Hypokalemia; F41.9 Anxiety disorder, unspecified
CPT/HCPCS: 36415; 36416; 51701; 70450; 71045; 76770; 80048; 80053; 81003; 81015; 82805; 83605; 83735; 84100; 84484; 85025; 90471; 90670; 93005; 93306; 94760; 96360; A4353; G0009; G8978-GP-CK; G8979-GP-CI; G8987-GO-CL; G8988-GO-CI; G8996-GN-CI; G8997-GN-CH; J0360; J1644; J7070

== ENCOUNTER 2018-05-08 15:43 | Inpatient (IN) | payer MEDICARE, OTHER ==
[~2018-05-08 15:43] MED LIST: ISOVUE-370 76%-LOCM 1 ML ONE
--- NOTE | 2018-05-08 16:24 | RAD ---
FRONTAL RADIOGRAPH CHEST PORTABLE UPRIGHT: 05/08/2018 HISTORY: Chest pain and bilateral shoulder pain. COMPARISON: 04/17/2018 FINDINGS: There are severe degenerative changes involving the bilateral glenohumeral joints. The cardiac silho uette is prominent. There is an IVC filter in the right upper abdomen. There is pulmonary vascular congestion. There is hazy bilateral increased density in both lung bases, medially, which may signif y infiltrate or edema. IMPRESSION: Increased density in the medial lung bases bilaterally. Chronic findings as above. POS: CHARLESH
[2018-05-08 16:33] LABS: #Basophils 0.1 thou/uL (0.0-0.2); #Eosinphils 0.4 thou/uL (0.0-0.7); #Lymphocytes 2.6 thou/uL (1.20-3.40); #Monocytes 1.1 thou/uL (0.11-0.59); #Neutrophils 4.2 thou/uL (1.40-6.50); %Basophils 1.7 % (0.0-1.0); %Lymphocytes 30.5 % (21.0-51.0); %Monocytes 13.2 % (0.0-10.0); %Neutrophils 49.7 % (42.0-75.0); Hemoglobin 8.9 g/dL (12.0-16.0); Mean Corpuscular HGB CONC 30.4 g/dL (32.0-36.0); Mean Corpuscular Hemoglobin 32.1 pg (27.0-31.0); Mean Platelet Volume 10.1 fL (7.4-10.4); Platelet Count 163 thou/uL (130-400); RBC Distribution Width 13.7 % (11.5-14.5); Red Blood Cell (RBC) Count 2.77 mill/uL (4.20-5.40); White Blood Cell (WBC) Count 8.4 thou/uL (4.8-10.8)
[2018-05-08 16:41] LABS: Bilirubin Negative (Negative); Blood, Urine Negative (Negative); Clarity CLEAR (Clear); Glucose, Urine (Dipstick) Negative (Negative); Leukocyte Negative (Negative); Nitrite Negative (Negative); Protein, Urine (Dipstick) 30 mg/dL (Neg-Trace); Specific Gravity, Urine 1.013 (1.002-1.036); Urobilinogen 0.2 mg/dL (0.2-1.0); pH, Urine 6.5 (5.0-9.0)
[2018-05-08 16:44] LABS: Bacteria/HPF None Seen HPF (None Seen); Hyaline Casts/LPF 0-3 HYALINE CAST LPF (0-3 Hyaline); Pathc Cast-AUWi Flag 0.29 (0-2.49); RBC/HPF 0-3 HPF (0-3); Squamous Epithelial 0-3 HPF (0-3); WBC/HPF 0-3 HPF (0-3)
[2018-05-08 16:45] LABS: MDiff Complete? YES; Macrocytosis SLIGHT = 6-15 cells (100X) (0-5/hpf); PLT Morphology Comment Appears Adequate; Polychromasia SLIGHT = 2-3 cells (100X) (0-2/hpf)
[2018-05-08 16:51] LABS: ALT (SGPT) 17 U/L (8-55); AST (SGOT) 21 U/L (5-34); Albumin 3.5 g/dL (3.4-4.8); Alkaline Phosphatase 90 U/L (40-150); Anion Gap 14 mmol/L (10-20); BUN (Urea Nitrogen) 29 mg/dL (9.8-20.1); Bilirubin, Total 0.4 mg/dL (0.2-1.2); CK (CPK) 56 U/L (29-168); Calc. Creatinine Clearance 0 mL/min (70-130); Calcium 8.3 mg/dL (7.8-10.44); Carbon Dioxide 18 mmol/L (23-31); Chloride 113 mmol/L (98-107); Estimated GFR-MDRD 31; Globulin 1.9 g/dL (2.4-3.5); Glucose 80 mg/dL (83-110); Lipase 22 U/L (8-78); Potassium 5.1 mmol/L (3.5-5.1); Protein, Total 5.4 g/dL (6.0-8.3); Sodium 140 mmol/L (136-145)
[2018-05-08 17:02] LABS: CKMB 2.3 ng/mL (0-6.6); Troponin I 0.014 ng/mL (< 0.028)
[2018-05-08] MEDS ORDERED: Nitroglycerin 2% Ointment 1 INCH/1 GM Packet ONE (17:21)
[2018-05-08] MEDS ORDERED: Furosemide 40 MG/4 ML VIAL ONE (17:21)
--- NOTE | 2018-05-08 17:49 | CT ---
CT ANGIOGRAM CHEST: 05/08/2018 HISTORY: Chest pain and shoulder pain. COMPARISON: None. TECHNIQUE: Serial axial CT imaging at 2.5 mm intervals, from the thoracic inlet through the upper abdomen, with IV contrast. Coronal and oblique sagittal 3D reformatted imaging obtained. FINDINGS: Small, layering, bilateral posterior pleural effusions are noted, right larger than left. There are a few mildly prominent axillary lymph nodes on the right, nonspecific and poorly assessed o n this exam. The right lobe of the thyroid gland appears enlarged but is also poorly assessed on thi s study. Limited assessment of the upper abdomen demonstrates atherosclerotic calcification of the a bdominal aorta and a partially imaged IVC filter. The heart appears enlarged. There is atherosclero tic calcification of the aortic arch and the descending thoracic aorta. No filling defect is seen to suggest the presence of pulmonary embolism. There is mild linear interstitial density in the perihilar regions and upper lobes with scattered mil d ground glass opacity, which may signify a degree of pulmonary edema. There is partial opacificatio n of the bilateral lower lobes, which may signify infiltrate or volume loss. There are severe degenerative changes seen throughout the spine, particularly the lower thoracic spin e and upper lumbar spine. IMPRESSION: No evidence for pulmonary embolism. There are findings suggesting pulmonary edema, with cardiac enla rgement, pulmonary vascular prominence, perihilar interstitial prominence, and small bilateral pleura l effusions. Multifocal atherosclerotic disease is present, including coronary artery calcification. POS: SANKET
[2018-05-08] MEDS ORDERED: Ondansetron ODT 4 MG TAB SL PRN (20:02)
[2018-05-08] MEDS ORDERED: Ondansetron PF 4 MG/2 ML Vial IVP PRN (20:02)
[2018-05-08 20:10] VITALS: BMI 22.2
[2018-05-08] MEDS ORDERED: Acetaminophen 325 MG TAB PO PRN (20:28)
[2018-05-08 20:34] LABS: Troponin I 0.015 ng/mL (< 0.028)
[2018-05-08] MEDS ORDERED: Furosemide 40 MG/4 ML VIAL SLOW IVP SCH (21:00)
[2018-05-08] MEDS ORDERED: Labetalol 100 MG TAB PO SCH (21:00)
[2018-05-08] MEDS ORDERED: oxyCODONE 5 MG TAB PO PRN (22:05)
[2018-05-08] MEDS ORDERED: Nitroglycerin 2% Ointment 1 INCH/1 GM Packet TOP SCH (23:59)
[2018-05-09 00:40] LABS: Troponin I 0.011 ng/mL (< 0.028)
[2018-05-09 05:47] LABS: Anion Gap 12 mmol/L (10-20); BUN (Urea Nitrogen) 30 mg/dL (9.8-20.1); Calc. Creatinine Clearance 18 mL/min (70-130); Calcium 8.7 mg/dL (7.8-10.44); Carbon Dioxide 22 mmol/L (23-31); Chloride 108 mmol/L (98-107); Estimated GFR-MDRD 31; Glucose 76 mg/dL (83-110); Potassium 5.1 mmol/L (3.5-5.1); Sodium 137 mmol/L (136-145)
[2018-05-09 06:15] LABS: Eosinophils 1 % (0-10); Hypochromia SLIGHT = 6-15 cells (100X) (0-5/hpf); Lymphocytes 23 % (21-51); MDiff Complete? YES; Macrocytosis SLIGHT = 6-15 cells (100X) (0-5/hpf); Mean Corpuscular HGB CONC 30.8 g/dL (32.0-36.0); Mean Corpuscular Hemoglobin 31.9 pg (27.0-31.0); Mean Platelet Volume 10.1 fL (7.4-10.4); Monocytes 4 % (0-10); Neutrophil 72 % (42-75); PLT Morphology Comment Appears Adequate; Platelet Count 154 thou/uL (130-400); Polychromasia SLIGHT = 2-3 cells (100X) (0-2/hpf); RBC Distribution Width 13.6 % (11.5-14.5); Red Blood Cell (RBC) Count 2.83 mill/uL (4.20-5.40); White Blood Cell (WBC) Count 7.1 thou/uL (4.8-10.8)
[2018-05-09] MEDS ORDERED: guaiFENesin/Dextromethorphan 10 ML UDCUP PO PRN (08:37)
[2018-05-09] MEDS ORDERED: Lidocaine Viscous Sol 2% 15 ml UD Cup SSP PRN (08:37)
[2018-05-09] MEDS ORDERED: Polyethylene Glycol 3350 17 GM Packet PO PRN (08:37)
[2018-05-09] MEDS ORDERED: Prevnar 13-Val Conj/PF 0.5 ML SYRINGE IM ONE (09:00)
[2018-05-09] MEDS ORDERED: NIFEdipine XL 60 MG TAB PO SCH (09:00)
[2018-05-09] MEDS ORDERED: oxyCODONE 5 MG TAB PO PRN (09:02)
[2018-05-09] MEDS: Acetaminophen 500 MG TAB PO SCH ×2 (09:21→17:42)
[2018-05-09] MEDS: Aspirin 81 mg Enteric Coated Tablet PO SCH (09:21)
[2018-05-09] MEDS: Enoxaparin Sodium 30 MG/0.3 ML SYRINGE SC SCH (09:22)
[2018-05-09] MEDS: DULoxetine 60 MG CAP PO SCH (09:22)
[2018-05-09] MEDS: Ferrous Sulfate 325 MG TAB PO SCH ×3 (09:22→20:14)
[2018-05-09] MEDS: Hydroxychloroquine Sulfate 200 MG TAB PO SCH (09:23)
[2018-05-09] MEDS: Labetalol 100 MG TAB PO SCH ×2 (09:23→20:15)
[2018-05-09] MEDS: Gabapentin 100 MG CAP PO SCH ×3 (09:23→20:14)
[2018-05-09] MEDS: Sodium Bicarbonate Tab 325 MG TAB PO SCH ×3 (09:24→20:15)
[2018-05-09] MEDS: sulfaSALAzine 500 MG TAB PO SCH ×2 (09:24→20:16)
[2018-05-09] MEDS: Multivitamin W/ Minerals 1 TAB PO SCH (09:24)
[2018-05-09] MEDS: NIFEdipine XL 60 MG TAB PO SCH (09:24)
--- NOTE | 2018-05-09 10:08 | HP ---
CHIEF COMPLAINT: Chest pain. HISTORY OF PRESENT ILLNESS: This patient is an 87-year-old female with a history of severe rheumatoi d arthritis which has been very debilitating and crippling. The patient was admitted here on 018 after apparently choking on a piece of pizza while at the long-term facility. During that adm ission, the patient had an echocardiogram which was considered a poor technical exam, but did appear to have an ejection fraction estimated at 50-55% with moderate to severe aortic regurgitation. She w as felt to have some aspiration risk and was on a soft diet. She also had some acute on chronic cruzito l insufficiency. She also had chest pain at that time, had an echocardiogram that was mentioned abov e. The patient returned to the emergency room last night with the complaint of chest pain that start ed out centrally and started spreading into her shoulders. The patient denied any other radiation, n ausea, or lightheadedness, but did feel some associated shortness of breath with it. REVIEW OF SYSTEMS: The patient has chronic pain associated with her rheumatoid arthritis, but other than that a 10-system review was negative except for those things mentioned in the history of present illness. PAST MEDICAL HISTORY: Notable for the severe rheumatoid arthritis, gastroesophageal reflux, peripher al vascular disease, history of DVT, dyslipidemia, hypertension, osteoarthritis, chronic kidney disea se stage 3, anemia of renal disease, history of MRSA of the right knee, Charcot foot on the right wit h idiopathic progressive neuropathy, chronic pain syndrome and history of left xuryp-ksl-fmlj amputat ion, history of anxiety and depression. The right knee joint has actually been removed as well for i nfectious reasons. The patient recently had a diagnosis of a thyroid mass, but that has not been fur ther investigated at this time. PAST SURGICAL HISTORY: Left BKA, debridement of the right knee with MRSA, pain pump implant in the a bdomen, spinal fusion, cholecystectomy, hysterectomy, bilateral shoulder surgery, right and left ankl e surgery, multiple hand surgeries, IVC filter placement, and bilateral cataractectomies. FAMILY HISTORY: Notable for diabetes and hypertension in multiple family members. SOCIAL HISTORY: The patient is a nonsmoker, nondrinker, nondrug user. She lives at the [facility]. She has an out of hospital DNR, but stated that she wanted to be a full code. She is somewh at indecisive on that at this time. She says her would be her surrogate decision maker. ALLERGIES: CARBAMAZEPINE, TOLTERODINE. MEDICATIONS: Capsaicin topically, oxycodone 5 mg q.4 hours p.r.n., Keppra 250 mg b.i.d., Procardia-X L 60 mg every day, Labetalol 200 mg b.i.d., ferrous sulfate 325 t.i.d. Acetaminophen 1000 mg q.8 h ours, atorvastatin 10 mg at bedtime, aspirin 81 mg every day, Tylenol p.r.n., vitamin D 1000 units ev julio day, gabapentin 100 mg t.i.d., Cymbalta 60 mg every day, Plaquenil 200 every day, Synthroid 100 mcg every day, lactobacillus 1 p.o. daily, menthol Biofreeze apply topically t.i.d., polyethylene gl ycol 17 grams p.o. daily, multivitamin 1 p.o. daily. Sulfasalazine 1000 mg b.i.d., sodium bicarbonat e 325 p.o. t.i.d. PHYSICAL EXAMINATION: VITAL SIGNS: Temperature is 97.4, pulse 71, respirations 16, O2 sat 96%, blood pressure is 156/71. GENERAL APPEARANCE: Age appropriate female. She is in no distress. She is generally unhappy to fin d out that she has to stay in the hospital. She explains it mostly because it was just simply not wh at she was expecting. HEENT: PERRL. No OP lesions. NECK: Supple and symmetric. CARDIOVASCULAR: Regular, without murmurs. LUNGS: Slightly diminished throughout, but no significant wheezes or rales. ABDOMEN: Soft, nontender, nondistended, positive bowel sounds. EXTREMITIES: Extremities have severe osteoarthropathy of the joints of both hands. She has chronic dark discoloration of the upper extremities. She has a left BKA. Right lower extremity is atrophied with also some chronic discoloration. LABORATORY DATA: White count 8.4, hemoglobin 8.9, MCV 106, platelets 163. D-dimer was 1.45, sodium 140, potassium 5.1, chloride 113, CO2 is 18, BUN 29, creatinine 1.56, glucose 80. LFTs normal. BNP 2525. Troponin 0.014. Albumin 3.5. Urinalysis is negative. Chest x-ray shows increased density in the medial lung bases bilaterally with some pulmonary vascular congestion. CTA of the chest shows no pulmonary embolisms, evidence of pulmonary edema with cardiac enlargement, pulmonary vascular prominence, perihilar interstitial prominence with bilateral small p leural effusions, multifocal atherosclerotic disease including coronary artery calcifications. ASSESSMENT AND PLAN: 1. Acute heart failure. It is unclear if this is diastolic or systolic at this time. She did have a previous echocardiogram indicating a reasonable ejection fraction; however, it was technically poor quality and the suggestion was for repeat. We will go ahead and get that repeated. The patient did receive Lasix in the emergency department. We will continue to monitor from that perspective. We w ill keep on telemetry and continue to monitor troponins as well. May need to consult Cardiology give n the outcome. 2. Severe rheumatoid arthritis. Continue the patient on her usual home medications. 3. Chronic pain syndrome. We will continue her usual pain medicines and monitor her pain situation. 4. Hyperlipidemia. Continue atorvastatin. 5. Chronic kidney disease, stable. 6. Chronic anemia of renal disease, stable. 7. Hypothyroidism. Continue with the Synthroid. DISPOSITION: We will attempt to call the patient's son who is a physician in [place] and discu ssed the case with him.
[2018-05-09] MEDS: levETIRAcetam 500 mg/5 ml Oral Solution PO SCH ×2 (10:20→20:15)
--- NOTE | 2018-05-09 12:11 | CON ---
DATE OF CONSULTATION: 05/09/2018 REASON FOR CONSULTATION: Chest pressure and diastolic congestive heart failure. Ms. Smita Blankenship is a delightful 87-year-old woman with a history of severe rheumatoid arthritis, renal insufficiency, and iron deficiency anemia, admitted on this occasion with pressure in her chest and s hortness of breath. HISTORY OF PRESENT ILLNESS: Ms. Blankenship was sent to the emergency room from her assisted living [facility]. She said it felt like something sitting on her chest. She is feeling better now. The patient stone s a history of very severe rheumatoid arthritis which has been debilitating and crippling. She was h ere 04/18/2018 with choking on a piece of pizza at the half-way facility. Ejection fraction is 5 0-55%, moderate to severe aortic insufficiency at that time, she was placed on a soft diet. She is k nown to have renal insufficiency and hyperkalemia. The patient on this occasion had some tightness in her chest and shortness of breath, feeling much be tter now. REVIEW OF SYSTEMS: CONSTITUTIONAL: General debility. CARDIAC: No chest pain or pressure prior to this, shortness of breath. Otherwise, she said she has some activity level. GASTROINTESTINAL: No nausea, vomiting, diarrhea. SKIN: No rashes. NEUROLOGIC: No unilateral weakness or numbness. PSYCHIATRIC: No unusual depression or anxiety. PAST MEDICAL HISTORY: 1. Severe rheumatoid arthritis. 2. History of deep venous thrombosis. She has a filter in place. 3. Hypertension. 4. Dyslipidemia. 5. Stage 3 renal failure, almost stage 4 looking at the lab. 6. History of MRSA right knee. 7. Infection requiring amputation of left lower extremity in the past, below knee. PAST SURGICAL HISTORY: 1. Left BKA. 2. Debridement of the right knee with methicillin-resistant Staphylococcus aureus. 3. IVC filter placement. FAMILY HISTORY: Diabetes and hypertension. SOCIAL HISTORY: Nonsmoker, nondrinker, lives at [facility]. She has out of hospital do not resuscitate. ALLERGIES: CARBAMAZINE and TOLTERODINE. MEDICATIONS PRIOR TO ADMISSION: 1. Keppra. 2. Procardia-XL. 3. Labetalol. 4. Iron. 5. Acetaminophen. 6. Atorvastatin. 7. Aspirin. 8. Vitamin D. 9. Cymbalta. 10. Plaquenil. PHYSICAL EXAMINATION: GENERAL: This is a chronically ill-appearing, frail, but very pleasant elderly woman in no distress. VITAL SIGNS: Blood pressure 185/77, pulse 70, regular. HEENT: Eyes; sclerae nonicteric. Mouth; mucous membranes moist. NECK: Supple, no lymphadenopathy. LUNGS: Clear, no wheezing, rales or rhonchi. CARDIAC: Normal S1, normal S2. I do not hear a murmur, rub or gallop. Her chest is very thin. ABDOMEN: Soft, nontender. EXTREMITIES: No clubbing or cyanosis. I do feel pulses in the femoral area, mildly diminished in th e right, normal on the left. I do not feel popliteal pulses on either side. She does not have a lef t lower extremity. There has been a left BKA. PERTINENT LABORATORY: She is anemic, hemoglobin 9, MCV is 103. Potassium is 5.1. She does have a h istory of hyperkalemia. Recent echocardiogram shows normal left ventricular systolic function with moderate to severe aortic insufficiency. A CT scan reveals calcium in the coronary arteries, no pulmonary emboli. The BNP 2524.8. Troponin levels in the negative range, peak 0.015. EKG the 12-lead is not on the chart, but the one done here in telemetry shows a right bundle branch b lock. ASSESSMENT: 1. Diastolic congestive heart failure. 2. Severe rheumatoid arthritis. 3. Anemia. 4. Right bundle branch block. 5. Coronary artery disease based on calcium in the coronary arteries. 6. Hypertension. 7. Stage 3 renal failure, nearly stage 4, estimated GFR is 31. I think that probably over estimates her renal function as she has very little muscle mass. She is 4 feet 8 inches tall and weighs 99 po unds. PLAN: 1. Conservative medical therapy appears most appropriate. We will add nitrates. 2. Check iron levels. 3. Add p.r.n. nitroglycerin. 4. The patient requests do not resuscitate status. If she is doing well, released back to the [facility] tomorrow.
[2018-05-09 12:24] LABS: Iron 155 ug/dL (50-170); Iron Binding Capacity, Total 155 mcg/dL (265-497)
[2018-05-09] MEDS ORDERED: Atorvastatin Calcium 10 MG TAB PO SCH (21:00)
--- NOTE | 2018-05-09 21:07 | PDOC.PN ---
- Subjective Encounter Start Date: 05/09/18 Encounter Start Time: 08:50 Patient is not doing well this morning. She is distressed by the needle sticks she had to endure for the labs. States she hurts worse than she ever has in places she has never hurt before. States we are not doing anything to help her (although she is on her usual meds). She says she doesn't know why her son wanted her here because she had never been here before. Does not want to get any meds via IV because the IV hurts and she doesn't want another stick. Says she just wants to talk to her son. - Objective Resuscitation Status: Resuscitation Status DNR:Do Not Resuscitate Vital Signs & Weight: Vital Signs (12 hours) Temp Pulse Resp BP BP Pulse Ox 05/09/18 20:15 84 164/89 H 05/09/18 16:33 97.8 F 77 18 147/69 H 94 L 05/09/18 11:36 98.8 F 67 18 175/74 H 94 L Weight Weight 99 lb 6.4 oz I&O: 05/08/18 05/09/18 05/10/18 06:59 06:59 06:59 Intake Total 250 450 Output Total 1950 650 Balance -1700 -200 Result Diagrams: 05/09/18 05:07 05/09/18 05:07 Phys Exam - Physical Examination Emotional, confused Respiratory: no wheezing, no rales, no rhonchi, clear to auscultation bilateral Cardiovascular: RRR, no significant murmur Gastrointestinal: soft, non-tender, no distention Pain pump present. Musculoskeletal: no edema LBKA. Deviation from normal: Emotional, tearful. Dx/Plan (1) Chest pain Code(s): R07.9 - CHEST PAIN, UNSPECIFIED Status: Acute Comment: Pressure sensation. Has CAD on CT chest. Also has some decompensated CHF. Cardiology consult. Echo pending. Trops neg. (2) CHF (congestive heart failure), NYHA class I Code(s): I50.9 - HEART FAILURE, UNSPECIFIED Status: Acute Comment: New diagnosis. Echo pending. Diuresed last overnight. Appears improved now. (3) CAD (coronary artery disease) Code(s): I25.10 - ATHSCL HEART DISEASE OF [place] CORONARY ARTERY W/O ANG PCTRS Status: Acute Comment: CAD on CTA chest. Has not had stress test. Her renal function would preclude a heart cath. Likely needs medical management. Discussed with Cardiology. (4) Anxiety and depression Code(s): F41.8 - OTHER SPECIFIED ANXIETY DISORDERS Status: Chronic Comment: A little decompensated this morning. Reassured her that her usual meds were coming. Called her son and discussed the situation with him. He will call the patient. (5) CKD (chronic kidney disease), stage III Code(s): N18.3 - CHRONIC KIDNEY DISEASE, STAGE 3 (MODERATE) Status: Chronic Comment: stable (6) Hypertension Code(s): I10 - ESSENTIAL (PRIMARY) HYPERTENSION Status: Chronic Comment: Labetalol, Nifedipine. (7) Rheumatoid arthritis Code(s): M06.9 - RHEUMATOID ARTHRITIS, UNSPECIFIED Status: Chronic Comment: Continue home meds. (8) Hyperlipidemia Code(s): E78.5 - HYPERLIPIDEMIA, UNSPECIFIED Status: Acute (9) Hypothyroidism Code(s): E03.9 - HYPOTHYROIDISM, UNSPECIFIED Status: Chronic Comment: Synthroid (10) Seizure disorder Code(s): G40.909 - EPILEPSY, UNSP, NOT INTRACTABLE, WITHOUT STATUS EPILEPTICUS Status: Acute Comment: Continue Keppra (11) Chronic pain Code(s): G89.29 - OTHER CHRONIC PAIN Status: Acute Comment: Continue pain meds and pain pump. - Plan * Echo results, cardiology consult, medical management. * Discussed with patient's son (Surgeon in [place], John Pattie). His hope defers to whatever plan we determine to be best, but reassures that he is the POA and she is DNR. He would hope to have the patient receive SLNTG at the nursing facility rather than getting admitted to the hospital.
[2018-05-10] MEDS: Acetaminophen 500 MG TAB PO SCH ×2 (00:11→08:57)
[2018-05-10] MEDS ORDERED: Levothyroxine Sodium 100 MCG TAB PO SCH (06:00)
[2018-05-10 08:09] VITALS: TEMP 98.1
[2018-05-10] MEDS: levETIRAcetam 500 mg/5 ml Oral Solution PO SCH (08:52)
[2018-05-10] MEDS: Enoxaparin Sodium 30 MG/0.3 ML SYRINGE SC SCH (08:52)
[2018-05-10] MEDS: Labetalol 100 MG TAB PO SCH (08:54)
[2018-05-10] MEDS: NIFEdipine XL 60 MG TAB PO SCH (08:54)
[2018-05-10] MEDS: Sodium Bicarbonate Tab 325 MG TAB PO SCH (08:54)
[2018-05-10] MEDS: DULoxetine 60 MG CAP PO SCH (08:54)
[2018-05-10] MEDS: Aspirin 81 mg Enteric Coated Tablet PO SCH (08:55)
[2018-05-10] MEDS: Hydroxychloroquine Sulfate 200 MG TAB PO SCH (08:55)
[2018-05-10] MEDS: Multivitamin W/ Minerals 1 TAB PO SCH (08:55)
[2018-05-10] MEDS: Ferrous Sulfate 325 MG TAB PO SCH (08:55)
[2018-05-10] MEDS: Gabapentin 100 MG CAP PO SCH (08:55)
[2018-05-10] MEDS: sulfaSALAzine 500 MG TAB PO SCH (08:57)
--- NOTE | 2018-05-10 09:45 | PDOC.PN ---
- Subjective Encounter Start Date: 05/10/18 Encounter Start Time: 09:43 -: old records requested/rev Patient seen and examined. No new complaints. No overnight events - Objective Resuscitation Status: Resuscitation Status DNR:Do Not Resuscitate MAR Reviewed: Yes Vital Signs & Weight: Vital Signs (12 hours) Temp Pulse Resp BP BP Pulse Ox 05/10/18 08:54 62 184/80 H 05/10/18 07:42 98.1 F 62 12 184/80 H 05/10/18 03:56 97.7 F 63 15 156/71 H 91 L Weight Weight 99 lb 8 oz I&O: 05/09/18 05/10/18 05/11/18 06:59 06:59 06:59 Intake Total 250 650 Output Total 1950 1350 Balance -1700 -700 Result Diagrams: 05/09/18 05:07 05/09/18 05:07 Radiology Reviewed by me: Yes EKG Reviewed by me: Yes Phys Exam - Physical Examination Constitutional: NAD HEENT: PERRLA, moist MMs, sclera anicteric Neck: no JVD, supple Respiratory: no wheezing, no rales, no rhonchi Cardiovascular: RRR, no significant murmur, no rub Gastrointestinal: soft, non-tender, no distention, positive bowel sounds left bka, deformity noted from RA Neurological: non-focal, normal sensation Psychiatric: normal affect, A&O x 3 Skin: no rash, normal turgor Dx/Plan (1) Acute diastolic ACC/AHA stage C congestive heart failure Code(s): I50.31 - ACUTE DIASTOLIC (CONGESTIVE) HEART FAILURE Status: Acute (2) Chest pain Code(s): R07.9 - CHEST PAIN, UNSPECIFIED Status: Acute Comment: Pressure sensation. Has CAD on CT chest. Also has some decompensated CHF. Cardiology consult. Echo pending. Trops neg. (3) Anxiety and depression Code(s): F41.8 - OTHER SPECIFIED ANXIETY DISORDERS Status: Chronic Comment: A little decompensated this morning. Reassured her that her usual meds were coming. Called her son and discussed the situation with him. He will call the patient. (4) CAD (coronary artery disease) Code(s): I25.10 - ATHSCL HEART DISEASE OF [place] CORONARY ARTERY W/O ANG PCTRS Status: Chronic Comment: CAD on CTA chest. Has not had stress test. Her renal function would preclude a heart cath. Likely needs medical management. Discussed with Cardiology. (5) CKD (chronic kidney disease), stage III Code(s): N18.3 - CHRONIC KIDNEY DISEASE, STAGE 3 (MODERATE) Status: Chronic Comment: stable (6) Chronic pain Code(s): G89.29 - OTHER CHRONIC PAIN Status: Chronic Comment: Continue pain meds and pain pump. (7) Dyslipidemia Code(s): E78.5 - HYPERLIPIDEMIA, UNSPECIFIED Status: Chronic (8) History of left below knee amputation Code(s): Z89.512 - ACQUIRED ABSENCE OF LEFT LEG BELOW KNEE Status: Chronic (9) Hypertension Code(s): I10 - ESSENTIAL (PRIMARY) HYPERTENSION Status: Chronic Comment: Labetalol, Nifedipine. (10) Hypothyroidism Code(s): E03.9 - HYPOTHYROIDISM, UNSPECIFIED Status: Chronic Comment: Synthroid (11) Macrocytic anemia Code(s): D53.9 - NUTRITIONAL ANEMIA, UNSPECIFIED Status: Chronic (12) Protein-calorie malnutrition, moderate Code(s): E44.0 - MODERATE PROTEIN-CALORIE MALNUTRITION Status: Chronic (13) Rheumatoid arthritis Code(s): M06.9 - RHEUMATOID ARTHRITIS, UNSPECIFIED Status: Chronic Comment: Continue home meds. (14) Seizure disorder Code(s): G40.909 - EPILEPSY, UNSP, NOT INTRACTABLE, WITHOUT STATUS EPILEPTICUS Status: Chronic Comment: Continue Keppra - Plan cont current plan of care * medication reviewed as below * symptomatic treatment * see discharge silvino. Review of Systems - Review of Systems ENT: negative: Ear Pain, Ear Discharge, Nose Pain, Nose Discharge, Nose Congestion, Mouth Pain, Mouth Swelling, Throat Pain, Throat Swelling, Other Respiratory: negative: Cough, Dry, Shortness of Breath, Hemoptysis, SOB with Excertion, Pleuritic Pain, Sputum, Wheezing Cardiovascular: negative: chest pain, palpitations, orthopnea, paroxysmal nocturnal dyspnea, edema, light headedness, other Gastrointestinal: negative: Nausea, Vomiting, Abdominal Pain, Diarrhea, Constipation, Melena, Hematochezia, Other Genitourinary: negative: Dysuria, Frequency, Incontinence, Hematuria, Retention , Other Musculoskeletal: negative: Neck Pain, Shoulder Pain, Arm Pain, Back Pain, Hand Pain, Leg Pain, Foot Pain, Other - Medications/Allergies Allergies/Adverse Reactions: Allergies Allergy/AdvReac Type Severity Reaction Status Date / Time carbamazepine [From Tegretol] Allergy Rash Verified 05/08/18 21:55 tolterodine Allergy Verified 05/08/18 23:17 tolterodine tartrate Allergy Verified 05/08/18 21:55 [From Detrol] Medications: Current Medications Acetaminophen (Tylenol) 650 mg PO Q4H PRN PRN Reason: Headache/Fever/Mild Pain (1-3) Last Admin: 05/08/18 21:34 Dose: 650 mg Acetaminophen (Tylenol) 1,000 mg PO Q8H [facility] Last Admin: 05/10/18 08:57 Dose: 1,000 mg Aspirin (Ecotrin) 81 mg PO DAILY [facility] Last Admin: 05/10/18 08:55 Dose: 81 mg Atorvastatin Calcium (Lipitor) 10 mg PO HS [facility] Last Admin: 05/09/18 20:14 Dose: 10 mg Cholecalciferol (Vitamin D3) 1,000 units PO DAILY [facility] Last Admin: 05/10/18 08:54 Dose: 1,000 units Duloxetine HCl (Cymbalta) 60 mg PO DAILY [facility] Last Admin: 05/10/18 08:54 Dose: 60 mg Enoxaparin Sodium (Lovenox) 30 mg SC 0900 [facility] Last Admin: 05/10/18 08:52 Dose: 30 mg Ferrous Sulfate (Feosol) 325 mg PO BID[facility] Gabapentin (Neurontin) 100 mg PO TID [facility] Last Admin: 05/10/18 08:55 Dose: 100 mg Guaifenesin/Dextromethorphan (Robitussin Dm) 10 ml PO Q6H PRN PRN Reason: Cough Hydroxychloroquine Sulfate (Plaquenil) 200 mg PO DAILY [facility] Last Admin: 05/10/18 08:55 Dose: 200 mg Iron/Minerals/Multivitamins (Theragran M) 1 tab PO DAILY [facility] Last Admin: 05/10/18 08:55 Dose: 1 tab Isosorbide Mononitrate (Imdur Er) 30 mg PO DAILY [facility] Last Admin: 05/10/18 08:54 Dose: 30 mg Labetalol HCl (Normodyne) 200 mg PO BID [facility] Last Admin: 05/10/18 08:54 Dose: 200 mg Levetiracetam (Keppra Oral Solution) 250 mg PO BID [facility] Last Admin: 05/10/18 08:52 Dose: 250 mg Levothyroxine Sodium (Synthroid) 100 mcg PO 0600 [facility] Last Admin: 05/10/18 05:18 Dose: 100 mcg Lidocaine HCl (Xylocaine 2% Viscous) 5 ml SSP Q4H PRN PRN Reason: Pain Nifedipine (Procardia Xl) 60 mg PO DAILY [facility] Last Admin: 05/10/18 08:54 Dose: 60 mg Oxycodone HCl (Oxycodone Ir) 5 mg PO Q4H PRN PRN Reason: Pain Polyethylene Glycol (Miralax) 17 gm PO DAILY PRN PRN Reason: Constipation Sodium Bicarbonate (Bicarbonate, Sodium) 325 mg PO TID [facility] Last Admin: 05/10/18 08:54 Dose: 325 mg Sodium Chloride (Flush - Normal Saline) 10 ml IVF Q12HR [facility] Last Admin: 05/10/18 08:52 Dose: 10 ml Sodium Chloride (Flush - Normal Saline) 10 ml IVF PRN PRN PRN Reason: Saline Flush Sulfasalazine (Azulfidine) 1,000 mg PO BID [facility] Last Admin: 05/10/18 08:57 Dose: 1,000 mg
--- NOTE | 2018-05-10 09:48 | PRG ---
DATE OF SERVICE: 05/10/2018 SUBJECTIVE: Ms. Blankenship has had no further chest pain. She is feeling well. She wants to go back to her assisted living. PHYSICAL EXAMINATION: VITAL SIGNS: Blood pressures were variable, most recently 180/80, pulse 62. LUNGS: Clear. CARDIAC: Normal S1, normal S2. ABDOMEN: Soft, nontender. Echocardiogram showed ejection fraction 50-55%. She has diastolic dysfunction as well as moderate ao rtic insufficiency. ASSESSMENT: 1. Recent episode of angina. No recurrence. 2. Iron deficiency anemia. She said she recently received iron transfusion. 3. The patient wants conservative medical therapy. PLAN: 1. Add nitrates. 2. Okay with me to be released back home, see me if needed. 3. Avoid CURRY inhibitors with history of hyperkalemia, also avoid angiotensin receptor blockers. If blood pressure is high low dose diuretic could be given, but her creatinine is 1.57. Need to be care ful. Her estimated GFR is 31, but it is not nearly that good as she has very little muscle mass.
--- NOTE | 2018-05-10 10:34 | DIS ---
DATE OF ADMISSION: 05/08/2018 DATE OF DISCHARGE: 05/10/2018 PRIMARY CARE PHYSICIAN: Dr. Leandra Bella. DISCHARGE DISPOSITION: [facility] assisted living facility. PRIMARY DISCHARGE DIAGNOSES: New onset acute diastolic stage C congestive heart failure, chest pain, ruled out acute coronary syndrome due to uncontrolled hypertension. SECONDARY DISCHARGE DIAGNOSES: Seizure disorder, rheumatoid arthritis, moderate protein calorie maln utrition, macrocytic anemia, hypothyroidism, hypertension, history of left below knee amputation, dys lipidemia, chronic kidney disease stage 3, chronic pain disorder, anxiety and depression, coronary ar jan disease. PRIMARY PROCEDURE AND OPERATION: None. RADIOLOGICAL INVESTIGATION: Chest x-ray showed pulmonary vascular congestion. CT angio negative for PE, but showed pulmonary congestion. Echocardiography showed diastolic dysfunction, moderate aortic regurgitation. SIGNIFICANT LABORATORY DATA: WBC 7.1, hemoglobin 9.0, platelet of 154, MCV 103. D-dimer 1.45. Sodi um 137, potassium 5.1, BUN 30, creatinine 1.57, calcium 8.7. Iron 155, TIBC 155, saturation 100, [place] ritin 1037. Cardiac enzymes negative x3. TSH 2.12. BNP elevated with 2524. Urinalysis normal. Bl ood culture negative. DISCHARGE MEDICATIONS: Following our medicine scheduled, aspirin 81 mg p.o. daily, Lipitor 10 mg p.o . at bedtime, vitamin D3 1000 unit p.o. daily, Cymbalta 60 mg daily, gabapentin 100 mg t.i.d., Plaque nil 200 mg p.o. daily, labetalol 200 mg p.o. b.i.d., probiotic Lactobacillus 1 capsule daily, Keppra 250 mg p.o. b.i.d., Synthroid 100 mcg p.o. daily, multivitamin 1 tablet p.o. daily, Procardia-XL 60 m g p.o. daily, MiraLax 17 grams p.o. daily p.r.n., oxycodone 5 mg q.4 hours p.r.n., sulfasalazine 1000 mg p.o. b.i.d., sodium bicarbonate 325 mg p.o. t.i.d., Lasix 40 mg p.o. daily, vitamin B12 1000 mcg p.o. daily, folic acid 1 mg p.o. daily. CONTRAINDICATIONS: None. CODE STATUS: DNR. INPATIENT CONSULTANTS: Dr. Keith was following while in hospital. TEST RESULTS PENDING ON DISCHARGE: None. ALLERGIES: CARBAMAZEPINE, TOLTERODINE. DISCHARGE PLAN: Post hospital, the patient is instructed to follow up with the primary care physicia n as well as Dr. Keith as instructed. HOSPITAL COURSE: An 87-year-old female who was admitted by Dr. Matute on 05/09/2018. Please see mn s H&P for further detail. The patient came to emergency room with acute onset of shortness of breath . The patient had elevated D-dimer and that is why CT angiography was done which was negative for pu lmonary embolism, but it was consistent with pulmonary vascular congestion. Her chest x-ray also darcy wed pulmonary vascular congestion. Patient also had elevated BNP and in appropriate clinical scenari o, patient's diagnosis was consistent with new onset diastolic heart failure. Echocardiography showe d diastolic dysfunction and moderate aortic regurgitation. The patient was also complaining of chest pain that was ruled out with acute coronary syndrome. She did not have any further chest pain. Her chest pain was attributed to be due to high blood pressure. The patient's blood pressure medication was continued while in hospital. We added Lasix upon discharge. The patient is currently euvolemic . She is without oxygen and lying flat without any shortness of breath. The patient is making hurry to go home today, because she has to take care of her . I gave her option to stay in [facility] for appropriate diuresis and more monitoring, but patient does not want to stay in hospital today a nd that is why based on her request, we are discharging. This patient is at high risk for recurrent admission given her diastolic heart failure as well as multiple other comorbidities. Her prognosis i s guarded. She was DNR while in hospital. She will follow up with the above-mentioned consultants. The patient is seen and examined at bedside today. Please see my progress note from today for furthe r detail. This patient had elevated ferritin and that is why we discontinued iron supplementation. Total time spent on discharge day was 31 minutes.
[2018-05-10 12:49] VITALS: BP 142/66
[2018-05-10] MEDS ORDERED: Ferrous Sulfate 325 MG TAB PO SCH (17:00)
[2018-05-11] MEDS ORDERED: Ferrous Sulfate 325 MG TAB PO SCH (08:00)
== END 2018-05-10 13:45 | DRG 291 ==
LOC: ERS 15:43 → 2NO 19:32
PROVIDERS: ADMIT Internal Medicine; ATTEND Internal Medicine
DX: I13.0 Hypertensive heart and chronic kidney disease with heart failure and stage 1 through stage 4 chronic kidney disease, or unspecified chronic kidney disease (principal); I50.33 Acute on chronic diastolic (congestive) heart failure; E44.0 Moderate protein-calorie malnutrition; N18.3 Chronic kidney disease, stage 3 (moderate); E11.22 Type 2 diabetes mellitus with diabetic chronic kidney disease; Z79.4 Long term (current) use of insulin; F41.9 Anxiety disorder, unspecified; F32.9 Major depressive disorder, single episode, unspecified; I25.10 Atherosclerotic heart disease of native coronary artery without angina pectoris; E78.5 Hyperlipidemia, unspecified; Z89.512 Acquired absence of left leg below knee; E03.9 Hypothyroidism, unspecified; D53.9 Nutritional anemia, unspecified; M06.9 Rheumatoid arthritis, unspecified; G40.909 Epilepsy, unspecified, not intractable, without status epilepticus; Z66 Do not resuscitate; Z91.81 History of falling; Z86.718 Personal history of other venous thrombosis and embolism; M19.90 Unspecified osteoarthritis, unspecified site; K21.9 Gastro-esophageal reflux disease without esophagitis; D63.1 Anemia in chronic kidney disease; G89.4 Chronic pain syndrome; D50.9 Iron deficiency anemia, unspecified; G40.409 Other generalized epilepsy and epileptic syndromes, not intractable, without status epilepticus; I45.10 Unspecified right bundle-branch block; Z68.22 Body mass index [BMI] 22.0-22.9, adult
CPT/HCPCS: 36415; 71045; 71275; 80048; 80053; 81003; 81015; 82553; 82728; 83540; 83550; 83605; 83690; 83880; 84443; 84484; 85025; 85379; 87040; 93005; 93306; 96361; 96365; 96375; J1650; J1940; J1956; J3370

== ENCOUNTER 2018-06-04 14:57 | Emergency (ER) | payer MEDICARE, OTHER ==
[2018-06-04] MEDS ORDERED: oxyCODONE 5 MG TAB PO SCH (15:45)
== END 2018-06-04 19:13 | disposition home or self-care (01) ==
LOC: ERS 14:57
DX: R52 Pain, unspecified (principal); M06.9 Rheumatoid arthritis, unspecified; D64.9 Anemia, unspecified; F32.9 Major depressive disorder, single episode, unspecified; Z79.899 Other long term (current) drug therapy; Z86.718 Personal history of other venous thrombosis and embolism
CPT/HCPCS: 99284

== ENCOUNTER 2018-08-06 16:37 | Emergency (ER) | payer MEDICARE, OTHER ==
--- NOTE | 2018-08-06 17:13 | RAD ---
PORTABLE CHEST ONE VIEW: 08/06/18 at 4:05 p.m. HISTORY: Chest pain. FINDINGS: Comparison is made with exam of 05/08/18. The heart size is enlarged. There is patchy consolidation in the left lower lung. Haziness in the ri ght lower lung is stable. No pneumothoraces or large effusions are seen. An IVC filter is again seen in the abdomen. There are degenerative changes in the spine. IMPRESSION: Findings suspicious for left basilar pneumonia. POS: [facility]
[2018-08-06 17:39] LABS: Hemoglobin 11.2 g/dL (12.0-16.0); Mean Corpuscular HGB CONC 30.9 g/dL (32.0-36.0); Mean Corpuscular Hemoglobin 32.5 pg (27.0-31.0); Mean Platelet Volume 9.6 fL (7.4-10.4); Platelet Count 204 thou/uL (130-400); RBC Distribution Width 14.9 % (11.5-14.5); Red Blood Cell (RBC) Count 3.45 mill/uL (4.20-5.40); White Blood Cell (WBC) Count 10.1 thou/uL (4.8-10.8)
[2018-08-06 17:57] LABS: #Basophils 0.1 thou/uL (0.0-0.2); #Eosinphils 0.2 thou/uL (0.0-0.7); #Lymphocytes 3.1 thou/uL (1.20-3.40); #Monocytes 1.3 thou/uL (0.11-0.59); #Neutrophils 5.4 thou/uL (1.40-6.50); %Basophils 1.2 % (0.0-1.0); %Eosinophils 1.7 % (0.0-10.0); %Lymphocytes 30.9 % (21.0-51.0); %Monocytes 12.9 % (0.0-10.0); %Neutrophils 53.3 % (42.0-75.0); Anisocytosis SLIGHT = 6-15 cells (100X) (0-5/hpf); MDiff Complete? YES; Platelet Morphology Comment Appears Adequate; Poikilocytosis SLIGHT = 6-15 cells (100X) (0-5/hpf); Polychromasia SLIGHT = 2-3 cells (100X) (0-2/hpf)
[2018-08-06 18:00] LABS: ALT (SGPT) 18 U/L (8-55); AST (SGOT) 27 U/L (5-34); Albumin 3.7 g/dL (3.4-4.8); Alkaline Phosphatase 109 U/L (40-150); Anion Gap 16 mmol/L (10-20); BUN (Urea Nitrogen) 47 mg/dL (9.8-20.1); Bilirubin, Total 0.4 mg/dL (0.2-1.2); CK (CPK) 33 U/L (29-168); Calc. Creatinine Clearance 0 mL/min (70-130); Calcium 9.4 mg/dL (7.8-10.44); Carbon Dioxide 21 mmol/L (23-31); Chloride 108 mmol/L (98-107); Estimated GFR-MDRD 25; Globulin 2.9 g/dL (2.4-3.5); Glucose 128 mg/dL (83-110); Potassium 4.9 mmol/L (3.5-5.1); Protein, Total 6.6 g/dL (6.0-8.3); Sodium 140 mmol/L (136-145)
[2018-08-06 18:26] LABS: CKMB 3.4 ng/mL (0-6.6)
[2018-08-06] MEDS ORDERED: cefTRIAXone\\ROCEPHIN 2 GM VIAL ONE (19:50)
[2018-08-06] MEDS ORDERED: Ondansetron ODT 4 MG TAB PO PRN (20:29)
[2018-08-06] MEDS ORDERED: Ondansetron PF 4 MG/2 ML Vial IVP PRN (20:29)
[2018-08-06] MEDS ORDERED: Acetaminophen 325 MG TAB PO PRN (20:29)
[2018-08-06] MEDS ORDERED: Acetaminophen 325 MG TAB ONE (20:50)
[2018-08-06] MEDS ORDERED: Cefepime 1 GM in Sodium Chloride 0.9% 100 ML IVPB SCH (21:00)
[2018-08-06] MEDS ORDERED: Norepinephrine 8 MG/0.9% NS 250 ML ONE (21:44)
[2018-08-06] MEDS ORDERED: Atropine Sulfate 1 mg/10 ml Syringe ONE (23:00)
[2018-08-06] MEDS ORDERED: Sodium Bicarb 50 MEQ/50 ML Abboject 8.4% SYRINGE ONE (23:00)
[2018-08-06] MEDS ORDERED: EPINEPHrine 1 MG/10 ML Abboject SYRINGE ONE (23:00)
--- NOTE | 2018-08-07 06:07 | HP ---
PRIMARY CARE DOCTOR: Leandra Bella MD CODE STATUS: The patient had out of hospital DNI, it was verified with son during cardiorespiratory arrest and the patient was DNR, only chemical code was given. TIME OF EVALUATION: 8:00 p.m. CHIEF COMPLAINT: Chest pain and hot flashes. HISTORY OF PRESENT ILLNESS: This is an 87-year-old female patient with past medical history of rheumatoid arthritis. The patient lives in [facility], came to the hospital after having some chest discomfort, myalgia, hot flashes, and the patient reported the symptoms have been present for the past week with no clear triggers, no alleviating factors. No fever, no chills. The patient does not give a complete history. She is basically feeling uncomfortable on initial interview. She was reassured on what time she would go upstairs and have her bed ready. Her symptoms were reported as moderate. Around 9:25 p.m., the patient overall was getting ready for transfer upstairs and the patient complained of some lower abdominal pain, suddenly fainted, developed bradycardia, went to cardiorespiratory arrest. Initial resuscitation was started and the patient recovered her pulse. During they called power of district attorney, the patient's son was called and code status was verified. The patient wishes out of hospital DNR only for chemical code and that was the way we proceeded after that verification. After regaining pulse, the patient became again bradycardic and developed PEA. Medications were given. Vasopressors were started with no ROSC. Please see code sheet for details. The family was contacted and the patient was pronounced given lack of pulse in respiratory movements. Most likely, cause of was sepsis, left lower lobe pneumonia, other contributing causes could be non-STEMI, RA. REVIEW OF SYSTEMS: CONSTITUTIONAL: The patient had no fevers. She reported chills and generalized weakness. RESPIRATORY: No cough, sputum production, or shortness of breath. CARDIOVASCULAR: The patient has reported chest pain. No palpitation. GASTROINTESTINAL: No nausea, no vomiting. The patient has constipation and lower abdominal pain. [employer]: No dizziness, headache, or feeling lightheaded. GENITOURINARY: No burning on urination. EXTREMITIES: The patient has left side amputation. No leg swelling. All other systems were reviewed and negative except for the findings mentioned above. PAST MEDICAL HISTORY: History of GERD, RA, seizures, DVT, hyperlipidemia, chronic kidney disease, stage 3, hypertension. PAST SURGICAL HISTORY: Right knee surgery due to infection. Multiple surgeries, implanted pain in the right lower abdomen was a morphine pump, left BKA, left knee surgery, spinal fusion, hysterectomy, bilateral shoulder surgeries, multiple hand surgeries. PSYCH HISTORY: Depression. SOCIAL HISTORY: The patient lives in a long-term facility at [facility]. No smoking history. No alcohol. No drug use. FAMILY HISTORY: Unable to obtain as the patient is unable to give history. KNOWN ALLERGIES: Tegretol and tolterodine. REPORTED MEDICATIONS: 1. Acetaminophen. 2. Atorvastatin. 3. Aspirin. 4. Biofreeze. 5. Capsacin. 6. Carvedilol. 7. Duloxetine. 8. Ferrous sulfate. 9. Folic acid. 10. Gabapentin. 11. Keppra. 12. Levothyroxine. 13. MiraLAX. 14. Sulfasalazine. 15. Theragran. 16. Oxycodone. 17. Sodium bicarb. 18. Vitamin D3. PHYSICAL EXAMINATION: VITAL SIGNS: On presentation, blood pressure 174/93 with heart rate 88, respiratory rate was 20, temperature 98.7, pain 0/10, and oxygen saturation 97% on room air. GENERAL APPEARANCE: The patient is alert, in mild discomfort with the lower abdomen pain with occasional flash and sweating. HEENT: Eyes, normal conjunctiva. Moist oral mucosa. Anicteric. No JVD. RESPIRATORY: Bilateral air entry with scattered rales. No wheezing. Symmetric expansion. CARDIOVASCULAR: Normal rate, regular rhythm. No murmurs. No gallop. No edema. ABDOMEN: Soft. The patient does have some complaints of lower abdominal pain and constipation. MUSCULOSKELETAL: Baseline range of motion and strength. The patient has left BKA. No tenderness. SKIN: Warm, intact. No pallor. No rash. The patient has chronic trophic and color changes in lower extremities. EXTREMITIES: The patient has significant deformities in bilateral hands due to RA. Peripheral pulses are present. Capillary refill seems to be intact. NEUROLOGIC: No evidence of any new focal weakness. Baseline speech. Cranial nerves seems to be intact. PSYCHIATRIC: The patient is in good mood. No anxiety. Suboptimal judgment. IMAGING STUDIES: EKG was reviewed. 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 Ventricular rate was 85, MT 150, QRS 142, QT corrected 537, some T-wave inversion are present in the lateral leads. Chest x-ray was reviewed. The patient had findings suspicious for left basilar pneumonia. An IVC filter is again seen in the abdomen. Degenerative changes of the spine. LABORATORY DATA: Labs were reviewed. The patient has white count of 10.1, hemoglobin 11.2, and platelet count 204. Sodium 140, potassium 4.9, chloride 108, carbon dioxide 21, anion gap 16, BUN 47, creatinine was 1.89 and on previous admission was 1.57, GFR 25, glucose 128, and calcium 9.4. Total bilirubin 0.4. LFTs were negative. Troponin first one 0.11, seconds one 0.118. Beta-natriuretic peptide 10,247. Serum total protein 6.6, albumin 3.7, globulin 2.9, albumin to globulin ratio is 1.3. ASSESSMENT AND PLAN: The patient was initially admitted for the following medical problems: 1. Left lower lobe pneumonia. The patient has been started on antibiotics, we will plan with adjustment as per sensitivity. 2. Possible [id number] myocardial infarction: Unclear if she has non-STEMI type 1 or type 2. Troponins are very low in indeterminant range, the plan was to trend troponins. Consult Cardiology, aspirin has been given. 3. Congestive heart failure, very elevated proBNP. We will reconcile home medications. Cardiology consultation, diuresis if needed. However, the patient did not seem to be in fluid overload. 4. Acute kidney injury on chronic kidney disease. Creatinine is 1.8 and the previous creatinine was 1.5 with plan for monitoring of kidney function and consultation with Nephrology if needed. Job ID: [id number]
[2018-08-07] MEDS ORDERED: Enoxaparin Sodium 40 MG/0.4 ML SYRINGE SC SCH (09:00)
== END 2018-08-07 22:03 | disposition expired ==
LOC: ERS 16:37
DX: I46.9 Cardiac arrest, cause unspecified (principal); R79.89 Other specified abnormal findings of blood chemistry; K21.9 Gastro-esophageal reflux disease without esophagitis; Z86.718 Personal history of other venous thrombosis and embolism; E78.5 Hyperlipidemia, unspecified; I12.9 Hypertensive chronic kidney disease with stage 1 through stage 4 chronic kidney disease, or unspecified chronic kidney disease; N18.3 Chronic kidney disease, stage 3 (moderate); D64.9 Anemia, unspecified; F32.9 Major depressive disorder, single episode, unspecified; Z79.899 Other long term (current) drug therapy; Z79.82 Long term (current) use of aspirin
CPT/HCPCS: 36415; 36416; 71045; 80053; 82550; 82553; 83880; 84484; 85025; 92950; 93005; 94760; 96365; 96367; J0171; J0461; J0696